=== PATIENT | male | born 1970 | race Caucasian/White ===

== ENCOUNTER → 2018-08-25 11:36 | Outpatient (CLI) | payer OTHER, SELFPAY ==
[2018-08-25 12:12] LABS: Basophils # 0.1 K/mm3 (0-0.2); Basophils % 0.9 % (0.1-2.0); Eosinophils # 0.2 K/mm3 (0.0-0.4); Eosinophils % 2.4 % (0.1-12.0); Hematocrit 47.2 % (42.0-52.0); Hemoglobin 15.3 g/dL (14.1-18.0); Lymphocytes # 2.3 K/mm3 (0.7-4.5); Lymphocytes % 24.2 % (10-50); Mean Corpuscular HGB Conc 32.3 g/dL (31.8-35.4); Mean Corpuscular Hemoglobin 29.9 pg (27.0-31.2); Mean Corpuscular Volume 92.6 fl (80-94); Mean Platelet Volume 6.9 fl (7.4-10.4); Monocytes # 0.6 K/mm3 (0.1-1.0); Neutrophils # 6.3 K/mm3 (1.8-7.8); Neutrophils % 66.6 % (37.0-80.0); Platelet Count 404 K/mm3 (142-424); Red Cell Distribution Width 13.3 % (11.5-17.5); White Blood Count 9.5 K/mm3 (4.8-10.8)
[2018-08-25 12:32] LABS: Hemoglobin A1C 5.6 % (0.0-7.0)
[2018-08-25 14:20] LABS: Alanine Aminotransferase 19 U/L (12-78); Albumin Level 3.9 gm/dL (3.4-5.0); Albumin/Globulin Ratio 1.1 (1.1-1.8); Alkaline Phosphatase 108 U/L (46-116); Anion Gap 15.4 mEq/L (5-15); Aspartate Amino Transferase 10 U/L (15-37); Bilirubin,Total 0.1 mg/dL (0.2-1.0); Blood Urea Nitrogen 15 mg/dL (7-18); Calcium 9.3 mg/dL (8.5-10.1); Carbon Dioxide 27 mmol/L (21.0-32.0); Chloride 103 mmol/L (98-107); Chol/HDL Ratio 5.5 (1-3.5); Cholesterol 194 mg/dL (140-200); Estimated Glomerular Filt Rate 103 ml/min (>60); GFR (African American) 124 ML/MIN (>60); Globulin 3.5 gm/dl (1.3-3.2); Glucose 95 mg/dL (74-106); HDL Cholesterol 35 mg/dL (27-67); LDL Cholesterol 127 mg/dL (0-130); Potassium 4.4 mmoL/L (3.5-5.1); Sodium 141 mmol/L (136-145); T4 (Thyroxine) 6.8 ug/dl (4.7-13.3); Thyroid Stimulating Hormone 2.58 uIU/ml (0.358-3.740); Total Protein,Serum 7.4 gm/dL (6.4-8.2); Triglycerides 158 mg/dL (30-200); VLDL Cholesterol 32 mg/dL (0-40)
[2018-08-26 06:55] LABS: Vitamin B12 445 pg/mL (232-1245)
[2018-08-26 15:09] LABS: Vitamin D 25 Hydroxy 15.1 ng/mL (30.0-100.0)
== END ==
PROVIDERS: PCP Nurse Practitioner Family; Visit Provider Psychiatry & Neurology Psychiatry
DX: F31.12 Bipolar disorder, current episode manic without psychotic features, moderate (principal); F41.9 Anxiety disorder, unspecified; R53.83 Other fatigue
CPT/HCPCS: 36415; 80053; 80061; 82607; 82652; 83036; 84436; 84443; 85025

== ENCOUNTER → 2018-09-28 07:50 | Outpatient (CLI) | payer OTHER, SELFPAY ==
--- NOTE | 2018-09-28 07:53 | MR_ITS ---
MR head/brain wo con HISTORY: Memory loss dizziness and daily headache with blurred vision and weakness in the right side of the body, remote injury ITS.REASON: headache/memory loss ORDERING PHYSICIAN: Jay Lau PATIENT AGE: 48 years Comparison: None TECHNIQUE: Standard multiplanar multiecho sequences are performed without contrast. FINDINGS: No midline shift, mass effect, intracranial hemorrhage, or hydrocephalus is evident. Cerebellopontine angles, cerebellum, and brainstem are unremarkable. There are a few nonspecific T2 white matter hyperintensities in the deep white matter the right frontal parietal junction, right anterior temporal lobe, and left frontal lobe. These are nonspecific. The hippocampal gyri and temporal horns are unremarkable. The pituitary has an unremarkable appearance. The head has a somewhat brachycephalic shape. No large aneurysms are evident. There is opacification of the right aspect of the sphenoid sinus and mild mucosal thickening in the right maxillary sinus. A retention cyst is present in the floor the left maxillary sinus 2 cm No mastoid effusion. IMPRESSION: 1. No acute intracranial findings. 2. Nonspecific scattered T2 white matter hyperintensities 3. Right sphenoid and bilateral maxillary sinus disease
== END ==
PROVIDERS: PCP Emergency Medicine; Visit Provider Nurse Practitioner Family
DX: G44.329 Chronic post-traumatic headache, not intractable (principal); R41.3 Other amnesia
CPT/HCPCS: 70551

== ENCOUNTER → 2019-01-03 09:36 | Outpatient (CLI) | payer OTHER, SELFPAY ==
[2019-01-04 12:13] LABS: Anti-Centromere B Antibodies <0.2 AI (0.0-0.9); Anti-Jo-1 <0.2 AI (0.0-0.9); Anti-Smith Antibody <0.2 AI (0.0-0.9); Antichromatin Antibodies <0.2 AI (0.0-0.9); Antiscleroderma-70 Antibodies <0.2 AI (0.0-0.9); RNP Antibodies <0.2 AI (0.0-0.9); Sjogren's Anti-SS-A <0.2 AI (0.0-0.9); Sjogren's Anti-SS-B <0.2 AI (0.0-0.9)
[2019-01-04 12:46] LABS: Anti-DNA (DS) Ab Qn 12 IU/mL (0-9); Rapid Plasma Reagin Ab Titer Non Reactive (NonRea<1:1)
== END ==
PROVIDERS: PCP Emergency Medicine; Visit Provider Specialist
DX: G93.40 Encephalopathy, unspecified (principal); R41.3 Other amnesia
CPT/HCPCS: 36415; 84443; 86225; 86235; 86592; 95819

== ENCOUNTER → 2019-07-14 10:44 | Outpatient (CLI) | payer OTHER, SELFPAY ==
[2019-07-14 11:21] LABS: Basophils # 0.1 K/mm3 (0-0.2); Eosinophils # 0.2 K/mm3 (0.0-0.4); Eosinophils % 2.7 % (0.1-12.0); Hematocrit 45.6 % (42.0-52.0); Hemoglobin 14.5 g/dL (14.1-18.0); Lymphocytes # 2.3 K/mm3 (0.7-4.5); Lymphocytes % 32.4 % (10-50); Mean Corpuscular HGB Conc 31.8 g/dL (31.8-35.4); Mean Corpuscular Hemoglobin 30.4 pg (27.0-31.2); Mean Corpuscular Volume 95.5 fl (80-94); Mean Platelet Volume 7.5 fl (7.4-10.4); Monocytes # 0.6 K/mm3 (0.1-1.0); Monocytes % 8.5 % (1.7-9.3); Neutrophils % 55.4 % (37.0-80.0); Platelet Count 311 K/mm3 (142-424); Red Blood Count 4.77 M/mm3 (4.60-6.20); Red Cell Distribution Width 13.5 % (11.5-17.5); White Blood Count 7.2 K/mm3 (4.8-10.8)
[2019-07-14 11:54] LABS: Hemoglobin A1C 5.8 % (0.0-7.0)
[2019-07-14 13:53] LABS: Alanine Aminotransferase 50 U/L (12-78); Albumin Level 3.9 gm/dL (3.4-5.0); Albumin/Globulin Ratio 1.3 (1.1-1.8); Alkaline Phosphatase 99 U/L (46-116); Anion Gap 11.2 mEq/L (5-15); Aspartate Amino Transferase 24 U/L (15-37); Bilirubin,Total 0.2 mg/dL (0.2-1.0); Blood Urea Nitrogen 16 mg/dL (7-18); Calcium 9.2 mg/dL (8.5-10.1); Carbon Dioxide 27 mmol/L (21.0-32.0); Chloride 110 mmol/L (98-107); Chol/HDL Ratio 7.4 (1-3.5); Cholesterol 162 mg/dL (140-200); Creatinine,Serum 0.92 mg/dL (0.70-1.30); Estimated Glomerular Filt Rate 87 ml/min (>60); GFR (African American) 105 ML/MIN (>60); Globulin 3.1 gm/dl (1.3-3.2); Glucose 101 mg/dL (74-106); HDL Cholesterol 22 mg/dL (27-67); LDL Cholesterol 91 mg/dL (0-130); Potassium 4.2 mmoL/L (3.5-5.1); Sodium 144 mmol/L (136-145); Thyroid Stimulating Hormone 3.42 uIU/ml (0.358-3.740); Triglycerides 243 mg/dL (30-200); VLDL Cholesterol 49 mg/dL (0-40)
== END ==
PROVIDERS: Visit Provider Psychiatry & Neurology Psychiatry
DX: F31.12 Bipolar disorder, current episode manic without psychotic features, moderate (principal)
CPT/HCPCS: 36415; 80053; 80061; 83036; 84443; 85025

== ENCOUNTER 2020-07-09 13:58 | Emergency (ER) | payer OTHER, SELFPAY ==
[2020-07-09 13:59] VITALS: BP 137/88; PULSE 102; RESP 18; TEMP 36.9; O2SAT 96; BMI 27.4
--- NOTE | 2020-07-09 14:23 | XR_ITS ---
PROCEDURE: XR CHEST 2V CLINICAL HISTORY: cough congestion COMPARISON: No exams were available for comparison FINDINGS: The cardiomediastinal silhouette and pulmonary vascularity are within normal limits. No lobar consolidation or collapse. There is a faint nodular opacity overlying the left lower lobe at the 6th rib anteriorly and could be due to nipple shadow. Follow-up with nipple marker may confirm No acute bony abnormalities. IMPRESSION: No acute finding. Please see above possible nipple shadow on the left. Dictated by: Anton Martines MD 07/09/2020 15:04 Anton Martines MD in [place] 07/09/2020 15:04
--- NOTE | 2020-07-09 14:55 | HMH.EDUTC ---
[facility] [place] Clinical Impression: Abnormal chest x-ray, Bronchitis, Tobacco dependence Sinusitis Qualifiers: Sinusitis location: unspecified location Chronicity: acute Recurrence: non-recurrent Qualified Code(s): J01.90 - Acute sinusitis, unspecified Disposition: Home, Self-Care Condition on Discharge: Good Instructions: Sinusitis, DI for Sinusitis, How to Quit Tobacco Products Additional Instructions: Drink plenty of fluids. Take tylenol for pain or fever. Take the medications as directed. FOLLOW THE DIRECTIONS ON THE COVID-19 HAND OUT THAT WE GAVE YOU REGARDING SELF-ISOLATION UNTIL YOU KNOW YOUR COVID-19 RESULTS Follow up with your primary care doctor regarding your symptoms and you chest x-ray. You need to quit smoking. Rest and self quarantine until you know the results of the COVID-19 test. GO TO THE ER FOR ANY WORSENING SYMPTOMS OR CONCERNS Prescriptions: Promethazine/Dextromethorphan [Promethazine-Dm Syrup] 5 ml PO Q6HP PRN #180 syrup PRN Reason: Cough Transmission Status: Received by [facility] #[id number] Azithromycin [Z-Patrick 250mg Tab*] 250 mg PO UD DOSE PK #6 tab Transmission Status: Received by [facility] # Referrals: Wilmer Gomez MD [Primary Care Provider] - Forms: Work/School Release Time of Disposition: 15:27 Medical Decision Making - Medical Records Medical records reviewed: No: I reviewed the patient's medical records. - Darrel Inquiry Pt receiving controlled substance: No Vital Signs: 07/09/20 13:59 07/09/20 15:52 Temperature 98.5 F 98.5 F Temperature Source Oral Pulse Rate 102 H Pulse Rate [Left Radial] 102 H Respiratory Rate 18 18 Blood Pressure 137/88 Blood Pressure [Right Arm] 137/88 Blood Pressure Mean [Right Arm] 104 Blood Pressure Source [Right Arm] Automatic Cuff Blood Pressure Position [Right Arm] Sitting 02 Sat by Pulse Oximetry 96 Oxygen Delivery Method Room Air Room Air Orders (Tests/Meds): ORDERS Category Date Time Status Covid-19 Nasal PCR ([facility]) Routine Lab 07/09/20 15:05 Received - Radiology Data #1 Image(s): Chest Image Reviewed: Yes I reviewed the patient's radiology image, Yes I have reviewed radiologist's interpretation Preliminary Findings: No Infiltrates Seen PROCEDURE: XR CHEST 2V CLINICAL HISTORY: cough congestion COMPARISON: No exams were available for comparison FINDINGS: The cardiomediastinal silhouette and pulmonary vascularity are within normal limits. No lobar consolidation or collapse. There is a faint nodular opacity overlying the left lower lobe at the 6th rib anteriorly and could be due to nipple shadow. Follow-up with nipple marker may confirm No acute bony abnormalities. IMPRESSION: No acute finding. Please see above possible nipple shadow on the left. Dictated by: Anton Martines MD 07/09/2020 15:04 Anton Martines MD in [place] 07/09/2020 15:04 [facility] [place] - General Stated complaint: congeston,runny nose,headache Time Seen by Provider: 07/09/20 14:55 Mode of Arrival: Ambulatory Source of Information: Patient Limitations: No Limitations Description of Symptoms (Recalled from Triage Doc. by RN): c/o headache, nasal congestion with drainage into throat and chest congestion HEENT Symptoms (Recalled from RN notes): Yes Resp Symptoms (Recalled from RN notes): No Skin Symptoms (Recalled from RN notes): No MS Symptoms (Recalled from RN notes): No Functional Status (Recalled from RN notes): wnl - History of Present Illness Provider Complaint: He c/o 3 days of a worsening productive cough. He denies feeling bad or running a fever. He has a history of smoking cigarettes for the past 30 years. - Related Data Home Medications Medication Instructions Recorded Confirmed fluoxetine 20 mg capsule 20 mg PO DAILY #30 cap 02/06/19 02/06/19 paliperidone palm (3-month) 546 IM #2 ml 02/06/19 02/06/19 mg/1.75 mL intramuscular syringe Previous Rx
[2020-07-09 15:52] VITALS: BP 137/88; PULSE 102; RESP 18; TEMP 36.9; O2SAT 96
--- NOTE | 2020-07-10 14:52 | PC.NURSE ---
1423- Attempted to call patient related to COVID results. Daughter answered phone stating that was not the patient's phone anymore. Daughter gave this nurse the patient's number. Attempted to call that number with no answer. Message left to return call. ([phone])
--- NOTE | 2020-07-10 17:18 | PC.NURSE ---
1717- attempted to get ahold of patient again. answered the phone stating the patient was not home at the time. Requested to have patient call this nurse when he gets home. Patient was educated to stay in quarantine until test results came back.
== END 2020-07-09 15:53 | disposition home or self-care (01) ==
PROVIDERS: Emergency Provider Nurse Practitioner Family; PCP Emergency Medicine
DX: U07.1 COVID-19 (principal); F17.210 Nicotine dependence, cigarettes, uncomplicated; J01.90 Acute sinusitis, unspecified
CPT/HCPCS: 71046; 99202; U0003

== ENCOUNTER 2021-03-10 14:13 | Emergency (ER) | payer OTHER, SELFPAY ==
[2021-03-10 14:40] VITALS: BP 136/84; PULSE 86; RESP 18; TEMP 36.9; O2SAT 98; BMI 29.8
--- NOTE | 2021-03-10 15:05 | HMH.EDUTC ---
[facility] [place]: [place] Disposition: Home, Self-Care Condition on Discharge: Good Instructions: Tooth Abscess, Clindamycin Additional Instructions: *Start antibiotic(s) immediately and be sure to take as ordered for the FULL length of time although you may be feeling better or start to see improvement in the next 24-48 hours *Monitor closely. Outlined redness so that you can monitor easier. Follow up immediately for new or worsening symptoms including but not limited to redness, swelling, streaking from site fever or chills. *Warm compress 15 minutes 3-4 times day *Monitor Temp. Tylenol every 4 hours as needed and ibuprofen every 6 hours as needed (as long as your primary care doctor has told you that it is ok to take both. For fever, aches, pain. ER if no less that 101 despite Tylenol and ibuprofen Follow up with your family doctor/primary care physician in the next 48-72 hours if no improvement Call Dentist and may appointment may take you awhile to get in Follow up with Family Doctor if any worsening of swelling or movement on up face Straight to ER if any life threatening symptoms Over the counter Motrin may help with pain and help with the inflammation if your doctor has said you can take it Take medication with food and make sure to eat some yogurt or take Probiotic to help with GI issues that can come from this medication Use dental balls as prescribed Prescriptions: clindamycin HCL [Cleocin HCl] 300 mg PO TID 10 Days #30 cap Transmission Status: Pending to [facility] #[id number] Referrals: Wilmer Gomez MD [Primary Care Provider] - As needed Gamaliel Vaughn [Referring] - Time of Disposition: 15:08 Medical Decision Making - Darrel Inquiry Pt receiving controlled substance: No Darrel was queried for this patient: No Vital Signs: 03/10/21 14:40 Temperature 98.4 F Temperature Source Oral Pulse Rate [Right Brachial] 86 Respiratory Rate 18 Blood Pressure [Right Arm] 136/84 Blood Pressure Mean [Right Arm] 101 Blood Pressure Source [Right Arm] Automatic Cuff Blood Pressure Position [Right Arm] Sitting 02 Sat by Pulse Oximetry 98 Oxygen Delivery Method Room Air [facility] [place] - General Stated complaint: lt side of face swollen Time Seen by Provider: 03/10/21 15:05 Mode of Arrival: Ambulatory Source of Information: Patient Limitations: No Limitations Description of Symptoms (Recalled from Triage Doc. by RN): PATIENT C/O SWELLING TO LEFT SIDE OF FACE HEENT Symptoms (Recalled from RN notes): Yes Resp Symptoms (Recalled from RN notes): No Skin Symptoms (Recalled from RN notes): No MS Symptoms (Recalled from RN notes): No Functional Status (Recalled from RN notes): WNL - History of Present Illness Provider Complaint: Patient states that he has several broken and decaying teeth State that he went out to eat last night and after started having some swelling and tenderness in his left side of face States that today swelling was worse and hurts when he touches it State that he called trying to get into dentist but no one had any openings - Related Data Home Medications Medication Instructions Recorded Confirmed fluoxetine 20 mg capsule 20 mg PO DAILY #30 cap 02/06/19 02/06/19 paliperidone palm (3-month) 546 IM #2 ml 02/06/19 02/06/19 mg/1.75 mL intramuscular syringe Previous Rx's Medication Instructions Recorded Promethazine/Dextromethorphan 5 ml PO Q6HP PRN #180 syrup 07/09/20 [Promethazine-Dm Syrup] clindamycin HCL [Cleocin HCl] 300 mg PO TID 10 Days #30 cap 03/10/21 Allergies Allergy/AdvReac Type Severity Reaction Status Date / Time levofloxacin [From LEVAQUIN] Allergy Unknown Verified 02/06/19 15:57 - Worker's Comp Is this a Worker's Comp case?: No H History - Hepatitis A Screen Drug use history?: No High risk sexual behaviors?: No History of sexually transmitted infection?: No Currently employed?: No Childcare worker?: No Do you have indoor plum
[2021-03-10 15:18] VITALS: BP 136/84; PULSE 86; RESP 18; TEMP 36.9; O2SAT 98
== END 2021-03-10 15:23 | disposition home or self-care (01) ==
PROVIDERS: Emergency Provider Nurse Practitioner; PCP Emergency Medicine
DX: K04.7 Periapical abscess without sinus (principal); F41.8 Other specified anxiety disorders; G43.709 Chronic migraine without aura, not intractable, without status migrainosus; F17.210 Nicotine dependence, cigarettes, uncomplicated
CPT/HCPCS: 99202; G0463

== ENCOUNTER 2021-08-08 16:14 | Emergency (ER) | payer OTHER, SELFPAY ==
[2021-08-08 16:40] LABS: UTC Strep Screen (Rapid) Negative (Negative)
--- NOTE | 2021-08-08 17:08 | HMH.EDUTC ---
[facility] [place] Clinical Impression: Strep throat Disposition: Home, Self-Care Condition on Discharge: Good Instructions: Strep Throat, DI for Strep Throat Additional Instructions: Drink plenty of fluids. Take tylenol or ibuprofen for pain or fever. Take the medications as directed. Follow up with your regular doctor. GO TO THE ER FOR ANY WORSENING SYMPTOMS Throw your tooth brush away and get a new one. Prescriptions: Amoxicillin/Potassium Clav [Augmentin 875-125 Tablet] 1 tab PO Q12H 10 Days #20 tab Transmission Status: Received by [facility] # predniSONE [Deltasone 10mg tablet] 10 mg PO BID 3 Days #6 tab Transmission Status: Received by [facility] # Referrals: Wilmer Gomez MD [Primary Care Provider] - Time of Disposition: 17:33 Medical Decision Making - Medical Records Medical records reviewed: No: I reviewed the patient's medical records. - Darrel Inquiry Pt receiving controlled substance: No Vital Signs: 08/08/21 17:28 08/08/21 17:44 Temperature 98.4 F 98.4 F Temperature Source Oral Oral Pulse Rate 69 Pulse Rate [Left Radial] 69 Respiratory Rate 18 18 Blood Pressure 174/98 H Blood Pressure [Right Arm] 174/98 H Blood Pressure Mean [Right Arm] 123 02 Sat by Pulse Oximetry 99 Oxygen Delivery Method Room Air Room Air - Lab Data Lab results reviewed: Yes: I reviewed the patient's lab results. Lab Results 08/08/21 16:32: Strep Scn Rapid Clinic Negative Orders (Tests/Meds): ORDERS Category Date Time Status Strep Screen Confirmation Routine Micro 08/08/21 16:32 Received [facility] [place] HPI - General Stated complaint: sore throat,Cough,runny nose Time Seen by Provider: 08/08/21 17:30 - History of Present Illness Provider Complaint: He c/o sore throat and feeling bad for the past 2 days. He has been with his grandson that tested positive for strep throat yesterday with similar symptoms to his. He denies fever, but he has had some chilling. He denies any vomiting, but he has had nausea and diarrhea. - Related Data Home Medications Medication Instructions Recorded Confirmed fluoxetine 20 mg capsule 20 mg PO DAILY #30 cap 02/06/19 02/06/19 paliperidone palm (3-month) 546 IM #2 ml 02/06/19 02/06/19 mg/1.75 mL intramuscular syringe Previous Rx's Medication Instructions Recorded Promethazine/Dextromethorphan 5 ml PO Q6HP PRN #180 syrup 07/09/20 [Promethazine-Dm Syrup] clindamycin HCL [Cleocin HCl] 300 mg PO TID 10 Days #30 cap 03/10/21 Amoxicillin/Potassium Clav 1 tab PO Q12H 10 Days #20 tab 08/08/21 [Augmentin 875-125 Tablet] predniSONE [Deltasone 10mg tablet] 10 mg PO BID 3 Days #6 tab 08/08/21 Allergies Allergy/AdvReac Type Severity Reaction Status Date / Time levofloxacin [From LEVAQUIN] Allergy Unknown Verified 02/06/19 15:57 [facility] History - Hepatitis A Screen Attestation statement:: This patient has been screened for Hepatitis A risk factors. I have reviewed the patient's past medical history: Yes Medical History: Reports:: Anxiety, Depression, Migraine Comment: Bipolar disorder w/ psycosis Other Surgeries: Yes: No Previous Surgery Amputation: No Fractures: Yes - Social History Smoking Status: Current every day smoker Alcohol Intake: never Alcohol Intake Frequency:: other Substance Use Type: former substance user Occupational Status: other Household Members: family - Psychiatric History Pschychiatric History:: Reports:: Anxiety, Depression Family Hx:: Hypertension, Hyperlipidemia, Heart Attack ROS Obtained: Yes All systems reviewed & no additional complaints - Constitutional Constitutional: Reports as per HPI - Eyes Eyes: Denies blurry vision - ENT Ears, Nose, Mouth, and Throat: Reports as per HPI - Cardiovascular Cardiovascular: Denies chest pain - Respiratory Respiratory: Denies chest congestion, Reports cough, Denies dyspnea, Denies stridor, Denies wheezing -
[2021-08-08 17:28] VITALS: BP 174/98; PULSE 69; RESP 18; TEMP 36.9; O2SAT 99; BMI 29.5
[2021-08-08 17:44] VITALS: BP 174/98; PULSE 69; RESP 18; TEMP 36.9; O2SAT 99
== END 2021-08-08 17:46 | disposition home or self-care (01) ==
PROVIDERS: Emergency Provider Nurse Practitioner Family; PCP Emergency Medicine
DX: J02.0 Streptococcal pharyngitis (principal); F41.8 Other specified anxiety disorders; Z79.899 Other long term (current) drug therapy
CPT/HCPCS: 87880; 99202; G0463

== ENCOUNTER → 2021-12-24 13:49 | Outpatient (CLI) | payer OTHER, SELFPAY ==
[2021-12-24 14:22] LABS: Basophils # 0.1 K/mm3 (0-0.2); Basophils % 1.8 % (0.1-2.0); Eosinophils # 0.2 K/mm3 (0.0-0.4); Eosinophils % 2.6 % (0.1-12.0); Hematocrit 41.6 % (42.0-52.0); Hemoglobin 13.9 g/dL (14.1-18.0); Lymphocytes # 2.5 K/mm3 (0.7-4.5); Lymphocytes % 32.2 % (10-50); Mean Corpuscular HGB Conc 33.5 g/dL (31.8-35.4); Mean Corpuscular Hemoglobin 32.9 pg (27.0-31.2); Mean Corpuscular Volume 98.4 fl (80-94); Mean Platelet Volume 8.3 fl (7.4-10.4); Monocytes # 0.7 K/mm3 (0.1-1.0); Monocytes % 9.3 % (1.7-9.3); Neutrophils # 4.2 K/mm3 (1.8-7.8); Neutrophils % 54.2 % (37.0-80.0); Platelet Count 253 K/mm3 (142-424); Red Blood Count 4.22 M/mm3 (4.60-6.20); Red Cell Distribution Width 14.1 % (11.5-17.5); White Blood Count 7.8 K/mm3 (4.8-10.8)
[2021-12-24 14:43] LABS: Chloride 111 mmol/L (98-107); Potassium 3.6 mmoL/L (3.5-5.1); Sodium 141 mmol/L (136-145)
[2021-12-24 14:45] LABS: Alanine Aminotransferase 60 U/L (12-78); Blood Urea Nitrogen 10 mg/dl (9-20); Estimated Glomerular Filt Rate 89 ml/min (>60); GFR (African American) 107 ML/MIN (>60)
[2021-12-24 14:46] LABS: Albumin Level 4.2 g/dl (3.5-5.0); Albumin/Globulin Ratio 1.7 (1.1-1.8); Alkaline Phosphatase 76 U/L (38-126); Anion Gap 10.6 mEq/L (5-15); Aspartate Amino Transferase 74 U/L (17-59); Bilirubin,Total 0.5 mg/dl (0.2-1.3); Calcium 8.8 mg/dl (8.4-10.2); Carbon Dioxide 23 mmol/L (22.0-30.0); Cholesterol 205 mg/dl (140-200); Globulin 2.5 g/dL (1.3-3.2); Glucose 87 mg/dl (74-100); Total Protein,Serum 6.7 g/dl (6.3-8.2); Triglycerides 309 mg/dl (30-150); VLDL Cholesterol 62 mg/dL (0-40)
[2021-12-24 14:47] LABS: Chol/HDL Ratio 9.8 (1-3.5); HDL Cholesterol 21 mg/dl (40-60)
[2021-12-24 14:59] LABS: Direct LDL Cholesterol 129.93 mg/dL (100-129)
[2021-12-24 15:11] LABS: Hemoglobin A1C 5.7 % (4.0-6.0)
[2021-12-24 15:20] LABS: Thyroid Stimulating Hormone 2.17 uIU/mL (0.465-4.68)
== END ==
PROVIDERS: Visit Provider Psychiatry & Neurology Psychiatry
DX: F25.1 Schizoaffective disorder, depressive type (principal); F31.12 Bipolar disorder, current episode manic without psychotic features, moderate
CPT/HCPCS: 36415; 80053; 80061; 83036; 84443; 85025

== ENCOUNTER 2022-06-07 13:57 | Emergency (ER) | payer OTHER, SELFPAY ==
[2022-06-07 13:57] VITALS: BP 147/89; PULSE 91; RESP 16; TEMP 36.7; O2SAT 98; BMI 29.5; BMI 33.4
[2022-06-07 15:31] VITALS: BP 131/86; PULSE 76; O2SAT 97
--- NOTE | 2022-06-07 15:31 | CT_ITS ---
PROCEDURE INFORMATION: Exam: CT Abdomen And Pelvis Without Contrast Exam date and time: 06/07/2022 3:42 PM Age: 52 years old Clinical indication: Abdominal pain; Flank; Left; Additional info: Left flank pain TECHNIQUE: Imaging protocol: Computed tomography of the abdomen and pelvis without contrast. Radiation optimization: All CT scans at this facility use at least one of these dose optimization techniques: automated exposure control; mA and/or kV adjustment per patient size (includes targeted exams where dose is matched to clinical indication); or iterative reconstruction. COMPARISON: CR XR CHEST 2V 06/07/2022 3:35 PM FINDINGS: Lungs: No acute findings in the visualized lung bases. There is a partially calcified 1 cm granuloma in the left lower lobe, and adjacent minimal reticulonodular scarring. No focal consolidation. Pleural spaces: No pleural effusion or pneumothorax, as visualized. Heart: The heart is not enlarged. Trace pericardial effusion. Liver: Prominent diminished liver attenuation consistent with fatty change, with periportal sparing. Hepatomegaly. No discrete mass is seen on this nonenhanced exam. Gallbladder and bile ducts: The gallbladder is unremarkable. No calcified stones or biliary dilatation. Pancreas: Mild fatty infiltrative changes of the pancreas. No ductal dilatation or acute findings. Spleen: Slight splenomegaly approximate 13 cm series 3, image 23. Adrenal glands: The adrenal glands are normal. Kidneys and ureters: There are tiny bilateral nonobstructing renal calculi, at the right upper pole coronal series 1001, image 54, and left lower pole image 53. No hydronephrosis, hydroureter, or calcified obstructing ureteral stones. Stomach and bowel: The stomach is normal. There is no evidence of intestinal perforation or obstruction. No significantly dilated loops or mucosal thickening. The descending colon is mostly empty and contracted which likely accounts for minimally thickened appearance. There is no pericolic fluid, no extraluminal gas bubbles. Appendix: A normal appendix is identified. Intraperitoneal space: There is no free intraperitoneal air. There is no significant free intraperitoneal fluid. Vasculature: There is no aortic aneurysm. The vasculature demonstrates scattered mild atherosclerotic calcification. Lymph nodes: Mild portacaval adenopathy, with cluster of 2 prominent nodes coronal series 1001, image 39, and axial series 3, images 35-44; the more superior node approximately 2.0 x 1.5 x 1.8 cm, the inferior node 2.4 x 2.4 x 1 cm. Urinary bladder: The urinary bladder appears within normal limits for the degree of distension, poorly filled. No calcified stones. Reproductive: Prostate calcifications. No significant prostate enlargement. Seminal vesicles are unremarkable. Bones/joints: There are spinal degenerative changes, with multilevel disc narrrowing and spondylosis. Mild lower lumbar levoscoliosis, mild facet arthropathy. No acute appearing fractures. Soft tissues: There is a tiny fatty umbilical hernia; no herniated bowel loops. There are no soft tissue masses or fluid collections. IMPRESSION: 1. Tiny bilateral nonobstructing renal calculi. No hydronephrosis, hydroureter, or calcified obstructing ureteral stones. 2. Spinal degenerative changes, no acute fracture. 3. Fatty liver, mild hepatosplenomegaly. 4. Additional nonemergency and chronic findings as above.
--- NOTE | 2022-06-07 15:32 | XR_ITS ---
PROCEDURE INFORMATION: Exam: XR Chest Exam date and time: 06/07/2022 3:35 PM Age: 52 years old Clinical indication: Pain; Left-sided; Additional info: Flank pain TECHNIQUE: Imaging protocol: Radiologic exam of the chest. Views: 2 views. 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 No pulmonary consolidation. Lung volumes within normal limits. Pulmonary vessels do not appear congested. Pleural spaces: Unremarkable. No significant pleural effusion. No pneumothorax. Heart/Mediastinum: The cardiac silhouette is normal. Bones/joints: There are spinal degenerative changes, with multilevel disc narrrowing and spondylosis. IMPRESSION: 1. No acute findings. 2. 1 cm left lower lobe pulmonary granuloma. 3. No pulmonary consolidation, pleural effusion, or pneumothorax.
--- NOTE | 2022-06-07 15:33 | HMH.EDGENADL ---
Discharge Plan Disposition Patient Disposition: Home, Self-Care Condition: Good Prescriptions Prescriptions: New ibuprofen 800 mg tablet 800 mg PO Q8HP PRN (Reason: moderate pain ) Qty: 15 0RF methocarbamol 750 mg tablet 750 mg PO Q8H Qty: 10 0RF No Action prednisone 10 mg tablet 10 mg PO BID Qty: 10 0RF Rx Instructions: step two prednisone 20 mg tablet 20 mg PO BID Qty: 10 0RF Rx Instructions: step one cefdinir 300 mg capsule 300 mg PO BID Qty: 14 0RF Referrals Follow up/Referrals: Wilmer Gomez MD [Primary Care Provider] - See instructions Activity Restrictions/Add. Instructions Additional Instructions/Restrictions: Ibuprofen and Robaxin as prescribed. Heating pad 20 minutes 4 times a day. Follow-up with primary care provider if not improved in 2 to 3 days. Clinical Impressions Clinical Impression: Lumbar strain Instructions Patient Instructions: DI for Low Back Pain Discharge ED Provider: Victor Manuel Dubois General Adult HPI General Chief complaint: PAIN Stated complaint: Cough, pain in LT side from coughing Time Seen by Provider: 06/07/22 15:10 Mode of Arrival: Ambulatory Source of Information: Patient Limitations: No Limitations Description of Symptoms (Recalled from ER Triage Doc. by RN): to ed per pvt car with c/o sharp lt side pain starting yesterday after coughing. pt states pain worse with coughing, movement, inspiration History of Present Illness HPI narrative: States that yesterday he was smoking a cigarette and he felt like the smoke went down the wrong pipe causing him to go into a coughing fit. After coughing he developed severe pain in his left paraspinous lumbar/flank area. The pain is present constantly but worsens with movement and coughing. He has had urinary urgency, but no gross hematuria. He does have a prior history of a kidney stone. He also states that he has had a sensation of abdominal bloating preceding the symptoms by a couple of days and also has belching that tastes foul. Because of these other symptoms his wonders whether he has an ulcer. Related Data Previous Rx's Medication Instructions Recorded cefdinir 300 mg capsule 300 mg PO BID #14 caps 05/04/22 prednisone 10 mg tablet 10 mg PO BID #10 tabs 05/04/22 prednisone 20 mg tablet 20 mg PO BID #10 tabs 08/15/22 ibuprofen 800 mg tablet 800 mg PO Q8HP PRN moderate pain 06/07/22 #15 tabs methocarbamol 750 mg tablet 750 mg PO Q8H #10 tabs 06/07/22 Allergies Allergy/AdvReac Type Severity Reaction Status Date / Time levofloxacin [From LEVAQUIN] Allergy Unknown Verified 05/04/22 15:46 PFSH PFSH Social History Smoking Status: Current every day smoker alcohol intake: never substance use type: former substance user current occupational status: other Travel in the last 8 weeks: Inside the [place] household members: family ROS Obtained: Yes Systems reviewed as appropriate & no additional complaints except as documented Constitutional Constitutional: Denies fever(s), Denies headache(s) and Denies weakness ENT Ears, Nose, Mouth, and Throat: Denies headache(s), Denies nasal discharge and Denies sore throat Cardiovascular Cardiovascular: Denies chest pain Respiratory Respiratory: Reports shortness of breath and Reports pain with cough Gastrointestinal Gastrointestingal: Reports bloating; Denies abdominal pain, constipation, diarrhea or vomiting Genitourinary Male Genitourinary: Denies difficulty urinating, Reports flank pain, Denies hematuria and Reports urinary urgency Musculoskeletal Musculoskeletal: Reports as per HPI, Reports back pain and Denies numbness Neurologic Neurologic: Denies headache(s), Denies numbness and Denies weakness Physical Exam General General appearance: alert and in no apparent distress Head Head exam: atraumatic and normocephalic Eye Eye exam: Present normal appearance and EOMI ENT ENT exam: Present mucous membra
[2022-06-07 15:36] LABS: Microscopic, Urine URINE MICROSCOPIC (MICROSCOPIC)
[2022-06-07 15:46] LABS: Appearance,Urine CLEAR (Clear); Bilirubin,Urine Negative (Negative); Blood, Urine Negative (Negative); Color,Urine YELLOW (Yellow); Glucose,Urine (UA) Negative (Negative); Ketones,Urine Negative (Negative); Leukocyte Esterase,Urine Negative (Negative); Nitrate,Urine Negative (Negative); Protein,Urine Negative (Negative); Specific Gravity, Urine 1.015 (1.005-1.030); Urobilinogen,Urine 0.2 EU/dl (0.2)
[2022-06-07 15:53] LABS: Basophils # 0.1 K/mm3 (0-0.2); Basophils % 1.2 % (0.1-2.0); Eosinophils # 0.3 K/mm3 (0.0-0.4); Hematocrit 43.9 % (42.0-52.0); Hemoglobin 15.2 g/dL (14.1-18.0); Lymphocytes % 27.3 % (10-50); Mean Corpuscular HGB Conc 34.5 g/dL (31.8-35.4); Mean Corpuscular Hemoglobin 33.8 pg (27.0-31.2); Mean Corpuscular Volume 97.8 fl (80-94); Mean Platelet Volume 8.2 fl (7.4-10.4); Monocytes # 0.9 K/mm3 (0.1-1.0); Monocytes % 8.5 % (1.7-9.3); Neutrophils # 6.6 K/mm3 (1.8-7.8); Platelet Count 257 K/mm3 (142-424); Red Blood Count 4.49 M/mm3 (4.60-6.20); Red Cell Distribution Width 14.1 % (11.5-17.5); White Blood Count 10.9 K/mm3 (4.8-10.8)
[2022-06-07 16:20] LABS: Chloride 108 mmol/L (98-107); Sodium 142 mmol/L (136-145)
[2022-06-07 16:22] LABS: Alanine Aminotransferase 60 U/L (12-78); Alkaline Phosphatase 79 U/L (38-126); Aspartate Amino Transferase 65 U/L (17-59); Blood Urea Nitrogen 10 mg/dl (9-20); Carbon Dioxide 22 mmol/L (22.0-30.0); Creatinine Clearance Estimated 151 mL/min (50-200); Estimated Glomerular Filt Rate 101 ml/min (>60); GFR (African American) 122 ML/MIN (>60); Lipase 183 U/L (23-300)
[2022-06-07 16:23] LABS: Albumin Level 4.2 g/dl (3.5-5.0); Albumin/Globulin Ratio 1.4 (1.1-1.8); Bilirubin,Total < 0.1 mg/dl (0.2-1.3); Calcium 9.1 mg/dl (8.4-10.2); Glucose 134 mg/dl (74-100); Total Protein,Serum 7.2 g/dl (6.3-8.2)
[2022-06-07 16:30] VITALS: BP 122/83; PULSE 65; RESP 20; O2SAT 97
[2022-06-07 16:30] LABS: Squamous Epithelial Cell,Urine Occasional #/hpf (0-5); WBC,Urine Occasional #/hpf (0-3)
--- NOTE | 2022-06-07 16:46 | PC.NURSE ---
pt given sprite
[2022-06-07 17:01] VITALS: BP 123/81; PULSE 63; RESP 22; O2SAT 96
--- NOTE | 2022-06-07 17:17 | PC.NURSE ---
family at bedside updated on plan of care
[2022-06-07 17:27] VITALS: BP 130/74; PULSE 78; RESP 16; TEMP 36.6; O2SAT 98
== END 2022-06-07 17:29 | disposition home or self-care (01) ==
PROVIDERS: Emergency Provider Emergency Medicine; PCP Emergency Medicine
DX: S39.012A Strain of muscle, fascia and tendon of lower back, initial encounter (principal); Z79.899 Other long term (current) drug therapy; Z88.1 Allergy status to other antibiotic agents; Z72.0 Tobacco use
CPT/HCPCS: 71046; 74176; 80053; 81001; 83690; 85025; 96365; 96375; 99284

== ENCOUNTER → 2022-06-22 16:00 | Outpatient (CLI) | payer OTHER, SELFPAY ==
[2022-06-22 17:24] LABS: Basophils # 0.1 K/mm3 (0-0.2); Basophils % 1.1 % (0.1-2.0); Eosinophils # 0.3 K/mm3 (0.0-0.4); Eosinophils % 2.6 % (0.1-12.0); Hematocrit 45.9 % (42.0-52.0); Lymphocytes # 2.9 K/mm3 (0.7-4.5); Mean Corpuscular HGB Conc 32.7 g/dL (31.8-35.4); Mean Corpuscular Hemoglobin 32.1 pg (27.0-31.2); Mean Corpuscular Volume 98.2 fl (80-94); Mean Platelet Volume 8.5 fl (7.4-10.4); Monocytes % 8.7 % (1.7-9.3); Neutrophils # 6.9 K/mm3 (1.8-7.8); Neutrophils % 61.6 % (37.0-80.0); Platelet Count 300 K/mm3 (142-424); Red Blood Count 4.67 M/mm3 (4.60-6.20); Red Cell Distribution Width 14.2 % (11.5-17.5); White Blood Count 11.2 K/mm3 (4.8-10.8)
[2022-06-22 18:03] LABS: Chloride 107 mmol/L (98-107); Potassium 3.9 mmoL/L (3.5-5.1); Sodium 144 mmol/L (136-145)
[2022-06-22 18:04] LABS: Alanine Aminotransferase 73 U/L (12-78); Alkaline Phosphatase 87 U/L (38-126); Anion Gap 16.9 mEq/L (5-15); Aspartate Amino Transferase 80 U/L (17-59); Bilirubin,Total 0.2 mg/dl (0.2-1.3); Blood Urea Nitrogen 14 mg/dl (9-20); Carbon Dioxide 24 mmol/L (22.0-30.0); Estimated Glomerular Filt Rate 101 ml/min (>60); GFR (African American) 122 ML/MIN (>60)
[2022-06-22 18:05] LABS: Albumin Level 4.7 g/dl (3.5-5.0); Albumin/Globulin Ratio 1.6 (1.1-1.8); Calcium 9.5 mg/dl (8.4-10.2); Chol/HDL Ratio 10.2 (1-3.5); Cholesterol 224 mg/dl (140-200); Globulin 2.9 g/dL (1.3-3.2); Glucose 117 mg/dl (74-100); HDL Cholesterol 22 mg/dl (40-60); Total Protein,Serum 7.6 g/dl (6.3-8.2); Triglycerides 349 mg/dl (30-150); VLDL Cholesterol 70 mg/dL (0-40)
[2022-06-22 18:21] LABS: Free T4 (Free Thyroxine) 0.88 ng/dl (0.78-2.19)
[2022-06-22 18:27] LABS: 25-OH Vitamin D, Total 75.2 ng/mL (30-100)
[2022-06-22 18:35] LABS: Thyroid Stimulating Hormone 4.03 uIU/mL (0.465-4.68)
== END ==
PROVIDERS: PCP Emergency Medicine; Visit Provider Emergency Medicine
DX: K46.9 Unspecified abdominal hernia without obstruction or gangrene (principal); E55.9 Vitamin D deficiency, unspecified
CPT/HCPCS: 80053; 80061; 82306; 84439; 84443; 85025

== ENCOUNTER → 2022-07-08 10:06 | Outpatient (CLI) | payer OTHER, SELFPAY ==
--- NOTE | 2022-07-08 10:06 | CT_ITS ---
FINAL REPORT TECHNIQUE: Axial images through the abdomen and pelvis were performed without contrast.This study was performed with techniques to keep radiation doses as low as reasonably achievable, (ALARA). Individualized dose reduction techniques using automated exposure control or adjustment of mA and/or kV according to the patient's size were employed. CLINICAL HISTORY: periumbilical hernia, prior scan 05/2022 COMPARISON: 06/07/2020 a FINDINGS: ABDOMEN: The lung bases are clear. The heart size is normal. Limited images of the liver demonstrate fatty infiltration. Gallbladder is unremarkable. The spleen is at the upper limits of normal measuring 12 cm. No adrenal mass is identified. The aorta is normal in caliber. There is no significant free fluid or adenopathy. There is a less than 3 mm, nonobstructing left renal stone. There is no hydronephrosis. There is a small umbilical hernia containing fat. PELVIS: The appendix is normal. There are multiple, fluid-filled bowel loops in a nonspecific pattern. Small inguinal hernias are seen containing fat. The urinary bladder is unremarkable. There is no significant free fluid or adenopathy. IMPRESSION: Fatty infiltration of the liver. Spleen at upper limits of normal in size measuring 12 cm. Nonobstructing left renal stone. Small umbilical hernia containing fat. Reviewed, Interpreted and Dictated by Lc Cabrera III, MD Transcribed by Michelle Ang Authenticated and [facility]
== END ==
PROVIDERS: PCP Emergency Medicine; Visit Provider Emergency Medicine
DX: K42.9 Umbilical hernia without obstruction or gangrene (principal)
CPT/HCPCS: 74176

== ENCOUNTER → 2022-07-17 07:54 | Outpatient (CLI) | payer OTHER, SELFPAY ==
--- NOTE | 2022-07-17 07:54 | US_ITS ---
FINAL REPORT CLINICAL HISTORY: pain FINDINGS: Sonographic images of the abdomen were obtained. The liver has increased echogenicity consistent with fatty infiltration. Note is made of probable polyps within the gallbladder without a well-defined stone. There is no evidence of biliary ductal dilatation. The common hepatic duct measures 2 mm, which is within normal limits. Limited images of the pancreas are unremarkable. The spleen size is normal. The right kidney measures 11.8 cm in length. The left kidney measures 10.6 cm in length. There is normal renal echogenicity. There is no evidence of hydronephrosis. The aorta has an unremarkable appearance. Limited images of the inferior vena cava are unremarkable. There is a possible small umbilical hernia. IMPRESSION: Possible small umbilical hernia. If indicated, CT could further evaluate. Fatty liver. Probable polyps within the gallbladder without a well-defined stone. Reviewed, Interpreted and Dictated by Lc Cabrera III, MD Transcribed by Marilyn Ndiaye Authenticated and [facility]
== END ==
PROVIDERS: PCP Emergency Medicine; Visit Provider Surgery
DX: R10.9 Unspecified abdominal pain (principal)
CPT/HCPCS: 76700

== ENCOUNTER → 2022-07-28 12:04 | Outpatient (CLI) | payer OTHER, SELFPAY ==
[2022-07-28 12:49] LABS: Basophils # 0.1 K/mm3 (0-0.2); Basophils % 0.9 % (0.1-2.0); Eosinophils # 0.2 K/mm3 (0.0-0.4); Eosinophils % 2.6 % (0.1-12.0); Hematocrit 44.1 % (42.0-52.0); Hemoglobin 14.5 g/dL (14.1-18.0); Lymphocytes # 2.6 K/mm3 (0.7-4.5); Lymphocytes % 28.6 % (10-50); Mean Corpuscular HGB Conc 32.8 g/dL (31.8-35.4); Mean Corpuscular Hemoglobin 32.2 pg (27.0-31.2); Mean Corpuscular Volume 98.4 fl (80-94); Mean Platelet Volume 8.8 fl (7.4-10.4); Monocytes # 0.7 K/mm3 (0.1-1.0); Monocytes % 7.8 % (1.7-9.3); Neutrophils # 5.6 K/mm3 (1.8-7.8); Neutrophils % 60.2 % (37.0-80.0); Platelet Count 262 K/mm3 (142-424); Red Blood Count 4.48 M/mm3 (4.60-6.20); White Blood Count 9.2 K/mm3 (4.8-10.8)
[2022-07-28 13:06] LABS: INR 1.01 (0.9-1.1); Prothrombin Time 10.9 seconds (10.1-12.5)
[2022-07-28 14:09] LABS: Chloride 105 mmol/L (98-107); Potassium 4.2 mmoL/L (3.5-5.1); Sodium 142 mmol/L (136-145)
[2022-07-28 14:12] LABS: Alanine Aminotransferase 64 U/L (12-78); Albumin Level 4.6 g/dl (3.5-5.0); Albumin/Globulin Ratio 1.7 (1.1-1.8); Alkaline Phosphatase 74 U/L (38-126); Anion Gap 15.2 mEq/L (5-15); Aspartate Amino Transferase 70 U/L (17-59); Bilirubin,Total 0.2 mg/dl (0.2-1.3); Blood Urea Nitrogen 11 mg/dl (9-20); Calcium 10.4 mg/dl (8.4-10.2); Carbon Dioxide 26 mmol/L (22.0-30.0); Estimated Glomerular Filt Rate 101 ml/min (>60); GFR (African American) 122 ML/MIN (>60); Globulin 2.7 g/dL (1.3-3.2); Glucose 91 mg/dl (74-100); Total Protein,Serum 7.3 g/dl (6.3-8.2)
== END ==
PROVIDERS: PCP Emergency Medicine; Visit Provider Surgery
DX: K42.9 Umbilical hernia without obstruction or gangrene (principal); K82.4 Cholesterolosis of gallbladder; Z79.84 Long term (current) use of oral hypoglycemic drugs
CPT/HCPCS: 36415; 80053; 85025; 85610

== ENCOUNTER 2022-08-12 22:24 | Emergency (ER) | payer OTHER, SELFPAY ==
[2022-08-12 22:25] VITALS: BP 130/89; PULSE 87; RESP 20; TEMP 36.7; O2SAT 98; BMI 29.5
[2022-08-12 23:02] LABS: Basophils # 0.1 K/mm3 (0-0.2); Basophils % 1.1 % (0.1-2.0); Eosinophils # 0.2 K/mm3 (0.0-0.4); Eosinophils % 1.8 % (0.1-12.0); Hematocrit 47.1 % (42.0-52.0); Hemoglobin 15.5 g/dL (14.1-18.0); Lymphocytes # 2.2 K/mm3 (0.7-4.5); Lymphocytes % 23.4 % (10-50); Mean Corpuscular Hemoglobin 32.3 pg (27.0-31.2); Mean Platelet Volume 8.1 fl (7.4-10.4); Microscopic, Urine URINE MICROSCOPIC (MICROSCOPIC); Monocytes # 0.7 K/mm3 (0.1-1.0); Monocytes % 7.1 % (1.7-9.3); Neutrophils # 6.3 K/mm3 (1.8-7.8); Neutrophils % 66.6 % (37.0-80.0); Platelet Count 275 K/mm3 (142-424); Red Blood Count 4.81 M/mm3 (4.60-6.20); Red Cell Distribution Width 14.1 % (11.5-17.5); White Blood Count 9.4 K/mm3 (4.8-10.8)
[2022-08-12 23:03] LABS: Appearance,Urine CLEAR (Clear); Bilirubin,Urine Negative (Negative); Blood, Urine Negative (Negative); Color,Urine YELLOW (Yellow); Glucose,Urine (UA) Negative (Negative); Ketones,Urine Negative (Negative); Leukocyte Esterase,Urine Negative (Negative); Nitrate,Urine Negative (Negative); PH,Urine 5.5 (5.0-8.5); Protein,Urine Negative (Negative); Specific Gravity, Urine >= 1.030 (1.005-1.030); Urobilinogen,Urine 0.2 EU/dl (0.2)
[2022-08-12 23:05] LABS: Chloride 108 mmol/L (98-107); Potassium 3.4 mmoL/L (3.5-5.1); Sodium 143 mmol/L (136-145)
[2022-08-12 23:07] LABS: Amylase 95 U/L (30-110); Blood Urea Nitrogen 14 mg/dl (9-20); Creatinine Clearance Estimated 110 mL/min (50-200); Estimated Glomerular Filt Rate 78 ml/min (>60); GFR (African American) 95 ML/MIN (>60)
[2022-08-12 23:08] LABS: Alanine Aminotransferase 64 U/L (12-78); Albumin Level 4.8 g/dl (3.5-5.0); Albumin/Globulin Ratio 1.5 (1.1-1.8); Alkaline Phosphatase 65 U/L (38-126); Anion Gap 12.4 mEq/L (5-15); Aspartate Amino Transferase 71 U/L (17-59); Bilirubin,Total 0.3 mg/dl (0.2-1.3); Calcium 10.4 mg/dl (8.4-10.2); Carbon Dioxide 26 mmol/L (22.0-30.0); Globulin 3.1 g/dL (1.3-3.2); Glucose 101 mg/dl (74-100); Lipase 157 U/L (23-300); Total Protein,Serum 7.9 g/dl (6.3-8.2)
[2022-08-12 23:18] LABS: Squamous Epithelial Cell,Urine Occasional #/hpf (0-5)
--- NOTE | 2022-08-12 23:56 | HMH.EDABDPAI ---
Discharge Plan Disposition Patient Disposition: Home, Self-Care Chief Complaint: Abdominal Pain Prescriptions Prescriptions: No Action hydrocodone-acetaminophen 5-325 mg tablet 1 tab PO BID PRN (Reason: pain) Qty: 30 0RF sertraline 25 mg tablet 25 mg PO DAILY topiramate 100 mg tablet 100 mg PO DAILY paliperidone palm (3-month) 273 mg/0.88 mL syringe 273 mg IM [id number] atorvastatin 20 mg tablet 20 mg PO DAILY Qty: 90 0RF pantoprazole 40 mg tablet,delayed release (DR/EC) See Rx Instructions .ROUTE .COMPLEX Rx Instructions: TAKE 1 TABLET BY MOUTH DAILY Referrals Follow up/Referrals: Wilmer Gomez MD [Primary Care Provider] - See instructions Lc Askew MD [Staff Physician] - See instructions Clinical Impressions Clinical Impression: Abdominal pain Instructions Patient Instructions: DI for Acute Abdominal Pain Discharge ED Provider: Wilmer Gomez Abdominal Pain HPI General Chief Complaint: Abdominal Pain Stated Complaint: abd pain Time Seen by Provider: 08/12/22 23:56 Mode of Arrival: Family Vehicle Source of Information: Patient Limitations: No Limitations Description of Symptoms (Recalled from ER Triage Doc. by RN): Pt c/o severe RUQ ADB pain that feels tight around to my side . States he has a knwon bad gallbladder and hernia that Dr. Askew is going to repair/remove on 08/17. Pt does report nausea. Denies fever, chills, or diarrhea. History of Present Illness HPI narrative: pt with acute abd pain with hx of gb dis and pending surg complaint: abdominal pain Onset (ago): hour(s) Consistency: intermittent Severity: moderate Radiation: RUQ Related Data Home Medications Medication Instructions Recorded Confirmed paliperidone palm (3-month) 273 273 mg IM [id number] hallucinations 06/22/22 08/11/22 mg/0.88 mL intramuscular syringe sertraline 25 mg tablet 25 mg PO DAILY Depression 06/22/22 08/11/22 topiramate 100 mg tablet 100 mg PO DAILY migraines 06/22/22 08/11/22 pantoprazole 40 mg tablet,delayed See Rx Instructions .Route 08/11/22 08/11/22 release .COMPLEX GERD Previous Rx's Medication Instructions Recorded hydrocodone 5 mg-acetaminophen 325 1 tab PO BID PRN pain #30 tabs 07/20/22 mg tablet atorvastatin 20 mg tablet 20 mg PO DAILY elevated 08/04/22 cholesterol #90 tabs Allergies Allergy/AdvReac Type Severity Reaction Status Date / Time levofloxacin [From LEVAQUIN] Allergy Unknown Verified 07/28/22 11:26 [facility] Medical History (Updated 08/13/22 @ 00:25 by Wilmer Gomez MD) Brain injury Depression HLD (hyperlipidemia) Left upper arm injury Surgical History (Updated 08/11/22 @ 15:54 by Lisa Maldonado, RN) History of surgery on upper extremity Family History (Updated 08/11/22 @ 15:55 by Lisa Maldonado, RN) Family history of myocardial infarction Social History (Updated 08/11/22 @ 15:47 by Lisa Maldonado, RN) Smoking Status: Current every day smoker alcohol intake: never substance use type: former substance user current occupational status: disabled Travel in the last 8 weeks: None household members: family ROS Obtained: Yes All systems reviewed & no additional complaints except as documented Physical Exam General General appearance: alert Head Head exam: normocephalic Eye Eye exam: Present PERRL and EOMI ENT ENT exam: Present mucous membranes moist Neck Neck exam: Present trachea midline Respiratory Respiratory exam: Absent respiratory distress Cardiovascular Cardiovascular exam: Present regular rate Abdominal Exam Abdominal exam: Present soft, tenderness and Pressley's sign Abdominal tenderness: Present RUQ and mild Extremities Exam Extremities exam: Present full ROM Neurological Exam Neurological exam: Present alert, oriented X3 and motor sensory deficit Skin Skin exam: Absent rash Medical Decision Making Medical Records Medical records review
[2022-08-13 00:36] VITALS: BP 128/88; PULSE 88; RESP 18; TEMP 36.6; O2SAT 99
== END 2022-08-13 00:46 | disposition home or self-care (01) ==
PROVIDERS: Emergency Provider Emergency Medicine; PCP Emergency Medicine
DX: R10.9 Unspecified abdominal pain (principal); Z79.899 Other long term (current) drug therapy; F32.A Depression, unspecified; G43.909 Migraine, unspecified, not intractable, without status migrainosus; K21.9 Gastro-esophageal reflux disease without esophagitis; Z88.1 Allergy status to other antibiotic agents; E78.5 Hyperlipidemia, unspecified
CPT/HCPCS: 80053; 81001; 82150; 83690; 85025; 96365; 96375; 99284; J2405

== ENCOUNTER 2022-08-17 07:53 | Day surgery (SDC) | payer OTHER, SELFPAY ==
[2022-08-11 15:57] VITALS: BMI 29.5
[2022-08-17] VITALS (12 sets, daily range): BP systolic 102–149; BP diastolic 55–82; PULSE 71–79; RESP 16–18; TEMP 36.2–43; O2SAT 92–96
--- NOTE | 2022-08-17 11:21 | P.PN_ITS ---
[facility] Medical History Brain injury Depression HLD (hyperlipidemia) Left upper arm injury Surgical History History of surgery on upper extremity Family History Other Family history of myocardial infarction Social History Smoking Status: Current every day smoker alcohol intake: never substance use type: former substance user current occupational status: disabled Travel in the last 8 weeks: None household members: family [facility] Anesthesia Checklist Patient Identification Patient Identification: Arm Band Structural Data Admitted From: Home Planned Operative Procedure/s: Laparoscopic Cholecystectomy, Umbilical Hernia Repair Consent for Planned Operative Procedure(s) Verified: Yes Verified Documents: Surgical Consent and History and Physical NPO Status Verified Time NPO: 00:00 Additional verifications Anesthesia Reactions: No Hx Blood Transfusions: No Blood Transfusion Reaction: No Airway Assessment C-Spine Mobility Assessed: Yes TMJ Mobility Assessed: Yes Dentition: Poor Dentition Neurological Assessment Level of Consciousness: Awake and Alert Anesthesia Plan Anesthesia Risk discussed: Yes Anesthesia Plan: Verified ASA Class: II Anesthesia Type: General
--- NOTE | 2022-08-17 12:41 | EXP.OP.NOTE ---
Date of procedure: 08/17/22 Pre-op Diagnosis:: Symptomatic gallstones Umbilical hernia Post-op Diagnosis:: Same, liver disease Procedure performed:: Laparoscopic cholecystectomy Open umbilical hernia repair Laparoscopic liver biopsy Surgeon:: Lc Askew MD [employer]AKFAST INNKEEPER:: Markos Lora Anesthesia: GETA Estimated blood loss (mL): 30 Clinical Note:: Patient presents for laparoscopic cholecystectomy and open umbilical hernia repair.? He is a 52-year-old male who was referred by Dr. Gomez for umbilical hernia and I had initially seen him in the office on 07/14/2022.? Patient states that he does have a psychiatrist.? He describes pain in the right upper quadrant and subcostal area as well as the right upper flank.? Interestingly it seems to be worse when he coughs.? He describes it as feeling as though something had jumped out of his abdomen and over his rib cage resulting in some swelling.? It seems to be somewhat positional interestingly.? He had a CT scan performed which revealed findings of fatty infiltration of the liver and small umbilical hernia containing fat.? Given the nature of the patient's symptoms I felt that it was unlikely that the tiny umbilical hernia was causing the symptoms and I had him undergo gallbladder ultrasound.? Gallbladder ultrasound done on 07/17/2022 revealed findings of possible small umbilical hernia.? If indicated, CT could further evaluate.? Fatty liver.? Probable polyps within the gallbladder without a well-defined stone. ? His CT scan was on 07/08/2022 which revealed small umbilical hernia and fatty infiltration of the liver.? The patient has been given hydrocodone for this pain by his primary care provider. He was scheduled for laparoscopic cholecystectomy and open umbilical hernia repair. Of note, the patient had presented to the emergency department for right upper quadrant pain on 08/12/2022 and managed as an outpatient. Patient has had consistently slightly elevated AST with his ER visits and preoperative assessment. Operative findings:: Patient had an extremely tiny umbilical hernia measuring estimated 7 mm defect. He had somewhat thickened gallbladder. There were several small stones which were suctioned from the gallbladder. He had significant fatty liver with evidence of development of cirrhosis. Biopsy was performed. Cystic duct and cystic artery were densely adherent to one another. Operative note:: Patient was taken the operating room. He was given preoperative intravenous antibiotics. In the operating room he was placed in a supine position. General anesthesia was induced via endotracheal tube. Abdomen was prepped and draped in the standard surgical fashion. Infraumbilical skin incision was made. Dissection was carried down to the hernia sac which was densely adherent to the umbilical subdermal's. Using Metzenbaum dissection it was dissected free from the umbilical subdermis. Extraneous hernia sac was excised using electrocautery to normal fascia. Overall size of the defect measured about 7 mm. Burnett blunt trocar was inserted in the peritoneal cavity and secured with 0 Vicryl fascial stay sutures. CO2 pneumoperitoneum was achieved to 15 mmHg. Abdominal surveillance was then carried out laparoscopically. He was found to have some significant fatty infiltration of liver and findings consistent with cirrhosis. He was positioned in reverse Trendelenburg with left side down. A couple 5 mm trochars were inserted in the right upper abdomen. 10 mm trocar was inserted in the epigastrium. Gallbladder was identified and grasped and retracted anteriorly and superiorly over the dome of the liver. Blunt dissection was carried out the neck of the gallbladder bluntly incising the visceral peritoneum. Visceral peritoneum was incised lateral along the gallbladder. Ultimately cystic duct was identified. It was rather difficult to discern whether this was cystic duct or cystic artery. Consideration was being given for i
--- NOTE | 2022-08-17 13:36 | EXP.ANES.I ---
[facility] Anesthesia Record Part I Anesthesia Record I Intake, IV Amount: 1,200 Estimated blood loss (mL): 10 Urine output (mL): 0 Blood Products used (#): none Blood Pressure: 149/73 SaO2: 92 Pulse Rate: 72 Respiratory Rate: 16 Temperature: 98 F Patient is:: Drowsy and Stable Stable to PACU at:: 12:45
--- NOTE | 2022-08-17 13:45 | EXP.ANES.II ---
[facility] Anesthesia Record Part II Anesthesia Record Part II Discharge Time: 13:15 Destination: Surgical Day Care (OP Surgery) PACU nurse assessment reviewed?: Yes Patient Condition:: Good Anesthesia Complications:: None Swallowing reflex intact?: Yes Cyanosis?: No Blood Pressure: 134/75 Pulse Rate: 77 Temperature: 98 F Mental Status: Alert & Oriented Pain level:: 7 Nausea and/or vomitting:: None Intake, IV Amount: 0
== END 2022-08-17 13:55 | disposition home or self-care (01) ==
PROVIDERS: PCP Emergency Medicine; Visit Provider Surgery
PROC: 0FT44ZZ Resection of Gallbladder, Percutaneous Endoscopic Approach (ICD-10-PCS; CPT 47562; principal; 2022-08-17 09:30)
DX: K80.10 Calculus of gallbladder with chronic cholecystitis without obstruction (principal); K42.9 Umbilical hernia without obstruction or gangrene; Z72.0 Tobacco use; Z79.899 Other long term (current) drug therapy
CPT/HCPCS: 47562; 49585; 47379; 96374; J2405

== ENCOUNTER 2022-08-31 15:56 | Emergency (ER) | payer OTHER, SELFPAY ==
[2022-08-31 15:57] VITALS: BP 156/93; PULSE 83; RESP 18; TEMP 36.8; O2SAT 98; BMI 29.5
--- NOTE | 2022-08-31 16:11 | PC.NURSE ---
DR. MILNER AT BEDSIDE
--- NOTE | 2022-08-31 16:14 | CT_ITS ---
FINAL REPORT TECHNIQUE: Axial images through the abdomen and pelvis were performed without contrast.This study was performed with techniques to keep radiation doses as low as reasonably achievable, (ALARA). Individualized dose reduction techniques using automated exposure control or adjustment of mA and/or kV according to the patient's size were employed. CLINICAL HISTORY: concern for post operative wound dehicense , gallbladder surgery. COMPARISON: 07/08/2022 FINDINGS: ABDOMEN: The lung bases demonstrate calcified granulomas at the left lung base as well as a 2 mm, right lower lobe nodule, stable from prior exam. The heart size is normal. There is fatty infiltration of the liver. Patient is status post cholecystectomy. The spleen is normal. No adrenal mass is identified. The aorta is normal in caliber. There is no significant free fluid or adenopathy. There is a less than 3 mm nonobstructing stone in the lower pole of the left kidney. There is no hydronephrosis. PELVIS: The appendix is normal. The urinary bladder is unremarkable. There is no significant free fluid or adenopathy. IMPRESSION: Postoperative change of cholecystectomy. Nonobstructing left renal stone. Reviewed, Interpreted and Dictated by Lc Cabrera III, MD Transcribed by Michelle Ang Authenticated and [facility]
--- NOTE | 2022-08-31 16:17 | HMH.EDGENADL ---
Discharge Plan Disposition Patient Disposition: Home, Self-Care Condition: Good Prescriptions Prescriptions: No Action hydrocodone-acetaminophen 5-325 mg tablet 1 tab PO BID PRN (Reason: pain) Qty: 30 0RF sertraline 25 mg tablet 25 mg PO DAILY topiramate 100 mg tablet 100 mg PO DAILY paliperidone palm (3-month) 273 mg/0.88 mL syringe 273 mg IM [id number] atorvastatin 20 mg tablet 20 mg PO DAILY Qty: 90 0RF pantoprazole 40 mg tablet,delayed release (DR/EC) See Rx Instructions .ROUTE .COMPLEX Qty: 30 0RF Dose Instruction: TAKE 1 TABLET BY MOUTH DAILY Rx Instructions: TAKE 1 TABLET BY MOUTH DAILY hydrocodone-acetaminophen 5-325 mg Tablet 1 - 2 tab PO Q6H PRN (Reason: Pain) Qty: 17 0RF Referrals Follow up/Referrals: Wilmer Gomez MD [Primary Care Provider] - See instructions Clinical Impressions Clinical Impression: Post-op pain Instructions Patient Instructions: DI for Acute Pain -- Adult Discharge ED Provider: Nicola Jerome General Adult HPI General Chief complaint: PAIN Stated complaint: post op 08/17, pain/burning Time Seen by Provider: 08/31/22 16:05 Mode of Arrival: Ambulatory Source of Information: Patient Limitations: No Limitations Description of Symptoms (Recalled from ER Triage Doc. by RN): PT REPORTS ABDOMINAL PAIN AFTER LIFTING GRANDSON OFF SCHOOL BUS. PT HAD LAP GALLBLADDER AND HERNIA SURGERY ON 08/17 History of Present Illness HPI narrative: Patient is a 52-year-old male with a recent history of laparoscopic cholecystectomy on 08/17 who presents with abdominal pain. He says that he was lifting his grandson out of the wheelchair off the school bus earlier today when he felt a stabbing pain on his right side. He says it felt hot and was burning. He says that this persisted and he called the surgeon's office who recommended that he come here for evaluation and CT scan. He says that the pain has gotten a little bit better but still locates it on the right side. Denies any nausea. Denies any diarrhea. This is the first time this has happened since her surgery. Denies any other complaints at this time. Related Data Home Medications Medication Instructions Recorded Confirmed paliperidone palm (3-month) 273 273 mg IM [id number] hallucinations 06/22/22 08/17/22 mg/0.88 mL intramuscular syringe sertraline 25 mg tablet 25 mg PO DAILY Depression 06/22/22 08/17/22 topiramate 100 mg tablet 100 mg PO DAILY migraines 06/22/22 08/17/22 Previous Rx's Medication Instructions Recorded hydrocodone 5 mg-acetaminophen 325 1 tab PO BID PRN pain #30 tabs 07/20/22 mg tablet atorvastatin 20 mg tablet 20 mg PO DAILY elevated 08/04/22 cholesterol #90 tabs hydrocodone 5 mg-acetaminophen 325 1 - 2 tab PO Q6H PRN Pain #17 tabs 08/17/22 mg tablet pantoprazole 40 mg tablet,delayed See Rx Instructions .Route 08/17/22 release .COMPLEX #30 tabs Allergies Allergy/AdvReac Type Severity Reaction Status Date / Time levofloxacin [From LEVAQUIN] Allergy Unknown Verified 07/28/22 11:26 [facility] Disclaimer: The information contained in this section may have been updated after the patient was seen, as this information can be updated by other users. Medical History (Updated 08/31/22 @ 17:05 by Nicola Jerome MD) Brain injury Depression HLD (hyperlipidemia) Left upper arm injury Surgical History History of surgery on upper extremity Family History Other Family history of myocardial infarction Social History Smoking Status: Current every day smoker alcohol intake: never substance use type: former substance user current occupational status: disabled Travel in the last 8 weeks: None household members: family ROS Obtained: Yes All systems reviewed & n
--- NOTE | 2022-08-31 16:20 | PC.NURSE ---
PT TO CT AT THIS TIME
[2022-08-31 17:10] VITALS: BP 142/87; PULSE 76; RESP 17; TEMP 36.7; O2SAT 100
== END 2022-08-31 17:10 | disposition home or self-care (01) ==
PROVIDERS: Emergency Provider Student in an Organized Health Care Education/Training Program; PCP Emergency Medicine
DX: G89.18 Other acute postprocedural pain (principal); R10.9 Unspecified abdominal pain; Z79.899 Other long term (current) drug therapy; F32.A Depression, unspecified; G43.909 Migraine, unspecified, not intractable, without status migrainosus; E78.5 Hyperlipidemia, unspecified
CPT/HCPCS: 74176; 99284

== ENCOUNTER → 2022-10-06 12:19 | Outpatient (CLI) | payer OTHER, SELFPAY ==
--- NOTE | 2022-10-06 12:26 | CT_ITS ---
FINAL REPORT TECHNIQUE: Axial CT images of the abdomen were obtained with IV contrast only. Coronal reformatted images were also obtained. This study was performed with techniques to keep radiation doses as low as reasonably achievable (ALARA). Individualized dose reduction techniques using automated exposure control or adjustment of mA and/or kV according to the patient''s size were employed. CLINICAL HISTORY: STAT Abdominal pain after GB Surgery gb surgery 08-17, right sided abd pain after strain FINDINGS: There is calcified granuloma in the left lower lobe. The lungs are otherwise clear. The liver is enlarged and fatty infiltrated. No focal liver lesion is identified. The gallbladder is absent. No fluid collection is seen in the gallbladder fossa. The pancreas appears normal. The spleen size is within normal limits. There is no evidence of renal mass or hydronephrosis. There is no evidence of lymphadenopathy. The abdominal GI tract is within normal limits. There are small subcutaneous nodules within the subcutaneous fat overlying the gluteal musculature which may be related to injections. IMPRESSION: No acute abnormality. Enlarged fatty liver. Reviewed, Interpreted and Dictated by Za Oates MD Transcribed by Carlota Shell Authenticated and [facility]
== END ==
LOC: RAD 12:21
PROVIDERS: PCP Emergency Medicine; Visit Provider Family Medicine
DX: G89.18 Other acute postprocedural pain (principal); R10.9 Unspecified abdominal pain
CPT/HCPCS: 74160; Q9967

== ENCOUNTER → 2022-12-14 13:54 | Outpatient (CLI) | payer OTHER, SELFPAY ==
[2022-12-14 14:57] LABS: Amphetamine/Metha Screen,Urine Negative ng/ml (<1000)
[2022-12-14 15:01] LABS: Phencyclidine Screen,Urine Negative ng/ml (<25)
[2022-12-14 15:28] LABS: Barbiturates Screen,Urine Negative ng/ml (<200)
[2022-12-14 15:29] LABS: Benzodiazepines Screen,Urine Negative ng/ml (<200); Cannabinoid Screen,Urine Positive ng/ml (<50)
[2022-12-14 15:30] LABS: Cocaine Screen,Urine Negative ng/ml (<300)
[2022-12-14 15:31] LABS: Opiate Screen,Urine Positive ng/ml (<300)
[2022-12-14 16:09] LABS: Methadone Screen,Urine Negative ng/ml (<300)
== END ==
LOC: LAB.DROPOF 13:55
PROVIDERS: PCP Emergency Medicine; Visit Provider Emergency Medicine
DX: Z79.899 Other long term (current) drug therapy (principal)
CPT/HCPCS: 80305

== ENCOUNTER → 2023-02-05 13:39 | Outpatient (CLI) | payer OTHER, SELFPAY ==
--- NOTE | 2023-02-05 13:42 | XR_ITS ---
FINAL REPORT CLINICAL HISTORY: Pain @ 2nd MCP joint of Rt hand x 4 days, NKT COMPARISON: None FINDINGS: RIGHT HAND: 3 views of the right hand were obtained. 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 There is no acute fracture or dislocation. There is mild to moderate degenerative change of the 2nd MCP. Mild degenerative changes elsewhere in the hand. Visualized joint spaces are normally aligned. Soft tissues are unremarkable. IMPRESSION: Degenerative changes without acute bony abnormality. Reviewed, Interpreted and Dictated by Lc Cabrera III, MD Transcribed by Joselyn Whitney Authenticated and . [facility]
== END ==
PROVIDERS: PCP Emergency Medicine; Visit Provider Nurse Practitioner Family
DX: M79.644 Pain in right finger(s) (principal)
CPT/HCPCS: 73130

== ENCOUNTER → 2023-05-28 08:23 | Outpatient (CLI) | payer OTHER, SELFPAY ==
[2023-05-28 09:14] LABS: Basophils % 0.5 % (0.1-2.0); Eosinophils # 0.2 K/mm3 (0.0-0.4); Eosinophils % 2.5 % (0.1-12.0); Hematocrit 45.4 % (42.0-52.0); Hemoglobin 13.9 g/dL (14.1-18.0); Lymphocytes # 2.1 K/mm3 (0.7-4.5); Lymphocytes % 24.4 % (10-50); Mean Corpuscular HGB Conc 30.6 g/dL (31.8-35.4); Mean Corpuscular Hemoglobin 30.9 pg (27.0-31.2); Mean Corpuscular Volume 100.8 fl (80-94); Mean Platelet Volume 8.2 fl (7.4-10.4); Monocytes # 0.7 K/mm3 (0.1-1.0); Monocytes % 7.6 % (1.7-9.3); Neutrophils # 5.6 K/mm3 (1.8-7.8); Neutrophils % 64.9 % (37.0-80.0); Platelet Count 231 K/mm3 (142-424); Red Blood Count 4.51 M/mm3 (4.60-6.20); Red Cell Distribution Width 13.6 % (11.5-17.5); White Blood Count 8.7 K/mm3 (4.8-10.8)
[2023-05-28 09:52] LABS: Chloride 109 mmol/L (98-107)
[2023-05-28 09:53] LABS: Potassium 4.5 mmoL/L (3.5-5.1); Sodium 143 mmol/L (136-145)
[2023-05-28 09:55] LABS: Alanine Aminotransferase 62 U/L (12-78); Alkaline Phosphatase 90 U/L (38-126); Anion Gap 15.5 mEq/L (5-15); Aspartate Amino Transferase 72 U/L (17-59); Bilirubin,Total 0.4 mg/dl (0.2-1.3); Blood Urea Nitrogen 11 mg/dl (9-20); Carbon Dioxide 23 mmol/L (22.0-30.0); Estimated Glomerular Filt Rate 78 ml/min (>60); GFR (African American) 94 ML/MIN (>60)
[2023-05-28 09:56] LABS: Albumin Level 4.3 g/dl (3.5-5.0); Albumin/Globulin Ratio 1.4 (1.1-1.8); Calcium 9.7 mg/dl (8.4-10.2); Cholesterol 125 mg/dl (140-200); Glucose 119 mg/dl (74-100); HDL Cholesterol 21 mg/dl (40-60); Total Protein,Serum 7.3 g/dl (6.3-8.2); Triglycerides 137 mg/dl (30-150); VLDL Cholesterol 27 mg/dL (0-40)
[2023-05-28 10:07] LABS: Direct LDL Cholesterol 76.11 mg/dL (100-129)
[2023-05-28 10:26] LABS: Thyroid Stimulating Hormone 1.48 uIU/mL (0.465-4.68)
== END ==
PROVIDERS: PCP Emergency Medicine; Visit Provider Psychiatry & Neurology Psychiatry
DX: F25.1 Schizoaffective disorder, depressive type (principal)
CPT/HCPCS: 36415; 80053; 80061; 83036; 84443; 85025

== ENCOUNTER 2023-06-07 09:29 | Emergency (ER) | payer OTHER, SELFPAY ==
[2023-06-07 09:30] VITALS: BP 157/101; PULSE 108; RESP 16; TEMP 36.6; O2SAT 97; BMI 31.7
--- NOTE | 2023-06-07 10:00 | HMH.EDGENADL ---
Discharge Plan Disposition Patient Disposition: Home, Self-Care Prescriptions Prescriptions: New lidocaine HCl [Aspercreme (lidocaine HCl)] 4 % cream 1 applic topical TID PRN (Reason: pain) Qty: 120 0RF Rx Instructions: Do not combine with other lidocaine. No Action sertraline 25 mg tablet 25 mg PO DAILY topiramate 100 mg tablet 100 mg PO DAILY paliperidone palm (3 month) 273 mg/0.88 mL syringe 273 mg IM [id number] lidocaine 5 % adhesive patch,medicated 1 patch topical DAILY Qty: 30 0RF Rx Instructions: leave on most painful area for up to 12 hrs hydrocodone-acetaminophen 5-325 mg tablet 1 tab PO BID Qty: 60 0RF prednisone 20 mg tablet See Rx Instructions .Route .COMPLEX Qty: 9 0RF Rx Instructions: Take 1 tablet twice daily for 3 days, then Take 1 tablet daily for 3 days; atorvastatin 20 mg tablet See Rx Instructions .ROUTE .COMPLEX Qty: 90 0RF Dose Instruction: TAKE 1 TABLET BY MOUTH DAILY FOR CHOLESTEROL Rx Instructions: TAKE 1 TABLET BY MOUTH DAILY FOR CHOLESTEROL pantoprazole 40 mg tablet,delayed release (DR/EC) See Rx Instructions .ROUTE .COMPLEX Qty: 90 0RF Dose Instruction: TAKE 1 TABLET BY MOUTH DAILY Rx Instructions: TAKE 1 TABLET BY MOUTH DAILY Referrals Follow up/Referrals: Wilmer Gomez MD [Primary Care Provider] - See instructions Activity Restrictions/Add. Instructions Additional Instructions/Restrictions: At this time is felt you are safe to be discharged home. If new or worsening symptoms please not hesitate to return the emergency department. Please apply your topical lidocaine as prescribed. If your stools become firm please buy MiraLAX [id number] and take it until your stool is soft. Please follow-up with Dr. Askew at his clinic tomorrow June 08 at 9:30 AM. Clinical Impressions Clinical Impression: External hemorrhoid, thrombosed Discharge ED Provider: Kevin Alfaro General Adult HPI General Chief complaint: PAIN Stated complaint: possible hemroids Time Seen by Provider: 06/07/23 09:46 Mode of Arrival: Ambulatory Source of Information: Patient Limitations: No Limitations Description of Symptoms (Recalled from ER Triage Doc. by RN): Patient reports pain and swelling at his rectum. States he has been in pain for four days. Patient states he thinks that he has bad hemrrhoids and just can't take the pain anymore. History of Present Illness HPI narrative: Patient is a 53-year-old male with no pertinent past medical history presents emergency department for evaluation of rectal pain. Is been going on for 4 days. Persistent, severe. No bloody bowel movements. No constipation. No other acute complaints at this time. Related Data Home Medications Medication Instructions Recorded Confirmed paliperidone palm (3 month) 273 273 mg IM [id number] hallucinations 06/22/22 02/08/23 mg/0.88 mL intramuscular syringe sertraline 25 mg tablet 25 mg PO DAILY Depression 06/22/22 02/08/23 topiramate 100 mg tablet 100 mg PO DAILY migraines 06/22/22 02/08/23 Previous Rx's Medication Instructions Recorded lidocaine 5 % topical patch 1 patch topical DAILY #30 ea 10/19/22 hydrocodone 5 mg-acetaminophen 325 1 tab PO BID #60 tabs 02/08/23 mg tablet prednisone 20 mg tablet See Rx Instructions .Route 02/08/23 .COMPLEX #9 tabs atorvastatin 20 mg tablet See Rx Instructions .Route 04/16/23 .COMPLEX #90 tabs pantoprazole 40 mg tablet,delayed See Rx Instructions .Route 04/16/23 release .COMPLEX #90 tabs lidocaine HCl 4 % topical cream 1 applic topical TID PRN pain #120 06/07/23 (Aspercreme (lidocaine HCl)) grams Allergies Allergy/AdvReac Type Severity Reaction Status Date / Time levofloxacin [From LEVAQUIN] Allergy Unknown Verified 02/08/23 16:16 [facility] Disclaimer: The information contained in this section may have been updated after the patient was seen, as th
--- NOTE | 2023-06-07 10:01 | PC.NURSE ---
appointment made with Dr. Askew for pt: Wednesday at 9:30am
--- NOTE | 2023-06-07 10:06 | PC.NURSE ---
Rounded on patient no needs at this time.
[2023-06-07 10:35] VITALS: BP 152/98; PULSE 97; RESP 18; TEMP 36.6; O2SAT 99
== END 2023-06-07 10:37 | disposition home or self-care (01) ==
PROVIDERS: Emergency Provider Emergency Medicine; PCP Emergency Medicine
DX: K64.5 Perianal venous thrombosis (principal); F32.A Depression, unspecified; F17.200 Nicotine dependence, unspecified, uncomplicated
CPT/HCPCS: 99283

== ENCOUNTER 2023-10-04 16:34 | Emergency (ER) | payer OTHER, SELFPAY ==
[2023-10-04 16:35] VITALS: BP 123/79; PULSE 79; RESP 16; TEMP 36.7; O2SAT 99; BMI 31.0
[2023-10-04] MEDS: METHOCARBAMOL 500MG TABLET 750 MG PO (17:11)
[2023-10-04] MEDS: ACETAMINOPHEN 500MG TAB 1000 MG PO (17:11)
[2023-10-04] MEDS: IBUPROFEN 600 MG TABLET PO (17:12)
[2023-10-04] MEDS: DEXAMETHASONE 4MG TABLET 10 MG PO (17:12)
[2023-10-04] MEDS: LIDOCAINE 5% TRANSDERMAL PATCH 1 EACH TP (17:12)
--- NOTE | 2023-10-04 17:13 | ED_ITS ---
Discharge Plan Disposition Patient Disposition: Home, Self-Care Prescriptions Prescriptions: New prednisone 20 mg tablet 40 mg PO DAILY 5 Days Qty: 10 0RF methocarbamol 750 mg tablet 1,500 mg PO TID 5 Days Qty: 30 0RF lidocaine 5 % adhesive patch,medicated 1 patch topical DAILY Qty: 15 0RF Rx Instructions: leave on most painful area for up to 12 hrs No Action hydrocortisone [Anusol-HC] 2.5 % cream with perineal applicator 1 applic MI QD-BID PRN (Reason: hemorrhoids) Qty: 30 0RF polyethylene glycol 3350 [Miralax] 17 gram/dose powder 17 g PO DAILY Qty: 119 0RF sertraline 25 mg tablet 25 mg PO DAILY topiramate 100 mg tablet 100 mg PO DAILY paliperidone palm (3 month) 273 mg/0.88 mL syringe 273 mg IM [id number] lidocaine 5 % adhesive patch,medicated 1 patch topical DAILY Qty: 30 0RF Rx Instructions: leave on most painful area for up to 12 hrs hydrocodone-acetaminophen 5-325 mg tablet 1 tab PO BID Qty: 60 0RF prednisone 20 mg tablet See Rx Instructions .Route .COMPLEX Qty: 9 0RF Rx Instructions: Take 1 tablet twice daily for 3 days, then Take 1 tablet daily for 3 days; atorvastatin 20 mg tablet See Rx Instructions .ROUTE .COMPLEX Qty: 90 0RF Dose Instruction: TAKE 1 TABLET BY MOUTH DAILY FOR CHOLESTEROL Rx Instructions: TAKE 1 TABLET BY MOUTH DAILY FOR CHOLESTEROL pantoprazole 40 mg tablet,delayed release (DR/EC) See Rx Instructions .ROUTE .COMPLEX Qty: 90 0RF Dose Instruction: TAKE 1 TABLET BY MOUTH DAILY Rx Instructions: TAKE 1 TABLET BY MOUTH DAILY lidocaine HCl [Aspercreme (lidocaine HCl)] 4 % cream 1 applic topical TID PRN (Reason: pain) Qty: 120 0RF Rx Instructions: Do not combine with other lidocaine. Referrals Follow up/Referrals: Manuelito Wallace DO [Primary Care Provider] - See instructions Activity Restrictions/Add. Instructions Additional Instructions/Restrictions: Call your family doctor to establish care for this visit to the emergency department and schedule follow-up within 48 hours to ensure improvement. If you have any worsening of your condition or any other concerning signs or symptoms, return to the emergency department or your primary care doctor for further evaluation. Talk to Dr. Meléndez about scheduling occupational therapy versus physical therapy for your neck. Prednisone every morning for 5 days and Robaxin as prescribed. Robaxin can cause you to feel drowsy. Do not drive, operate heavy machinery, or engage in any activity that may make you tired, fall asleep, and because harm to yourself or others while taking this medication. Take Tylenol 1000 mg every 6 hours (4 times daily) and ibuprofen 400 mg every 6 hours (4 times daily) as needed with food and water to prevent GI upset and kidney damage. Clinical Impressions Clinical Impression: Cervical spine pain Discharge ED Provider: Adriel Aragon General Adult HPI General Chief complaint: PAIN Stated complaint: back and neck pain, no inj. Time Seen by Provider: 10/04/23 16:36 Mode of Arrival: Ambulatory Source of Information: Patient Limitations: No Limitations Description of Symptoms (Recalled from ER Triage Doc. by RN): Patient reports pain where his neck and back meet. States it started today and that he has not had an injury that he knows of. States that he did have his grandchild and dog in the bed with him last night and that this kind of feels like he has whiplash. History of Present Illness HPI narrative: 53-year-old male no relevant medical history presenting with neck pain. Patient states he has had pinching in my neck, before, but this was about 20 years ago. Last night, he thinks he slept on it wrong. Having a pinching station his C6 vertebra. Having difficulty turning his neck secondary to pinching/stabbing pain. Denies weakness, bowel or bladder dysfunction, the deficits, or any other concerns. Has not taken anything for the pain. Related Data Home Medications Medication Instructions Recorded Confirmed paliperidone palm (3 month) 273 273 mg IM [id number] hallucinations 06/22/22 06/08/23 mg/0.88 mL intramuscular syringe sertraline 25 mg tablet 25 mg PO DAILY Depression 06/22/22 06/08/23 topiramate 100 mg tablet 100 mg PO DAILY migraines 06/22/22 06/08/23 Previous Rx's Medication Instructions Recorded lidocaine 5 % topical patch 1 patch topical DAILY #30 ea 10/19/22 hydrocodone 5 mg-acetaminophen 325 1 tab PO BID #60 tabs 02/08/23 mg tablet prednisone 20 mg tablet See Rx Instructions .Route 02/08/23 .COMPLEX #9 tabs lidocaine HCl 4 % topical cream 1 applic topical TID PRN pain #120 06/07/23 (Aspercreme (lidocaine HCl)) grams hydrocortisone 2.5 % topical cream 1 applic MI QD-BID PRN hemorrhoids 06/08/23 with perineal applicator #30 grams (Anusol-HC) polyethylene glycol 3350 17 17 g PO DAILY #119 grams 06/08/23 gram/dose oral powder (Miralax) atorvastatin 20 mg tablet See Rx Instructions .Route 07/21/23 .COMPLEX #90 tabs pantoprazole 40 mg tablet,delayed See Rx Instructions .Route 07/21/23 release .COMPLEX #90 tabs lidocaine 5 % topical patch 1 patch topical DAILY #15 ea 10/04/23 methocarbamol 750 mg tablet 1,500 mg PO TID 5 days #30 tabs 10/04/23 prednisone 20 mg tablet 40 mg PO DAILY 5 days #10 tabs 10/04/23 Allergies Allergy/AdvReac Type Severity Reaction Status Date / Time levofloxacin [From LEVAQUIN] Allergy Unknown Verified 06/08/23 09:35 [facility] Disclaimer: The information contained in this section may have been updated after the patient was seen, as this information can be updated by other users. Medical History Abdominal pain Abnormal chest x-ray Brain injury Bronchitis Dental abscess Depression Gallbladder polyp Left upper arm injury Obesity Post-op pain Sinusitis Strep throat Surgical History History of hernia repair History of laparoscopic cholecystectomy History of surgery on upper extremity Family History Other Family history of myocardial infarction Social History Smoking Status: Current every day smoker alcohol intake: never substance use type: former substance user current occupational status: disabled Travel in the last 8 weeks: None household members: family ROS Obtained: Yes All systems reviewed & no additional complaints except as documented Physical Exam General General appearance: alert and in no apparent distress Head Head exam: atraumatic and normocephalic Eye Eye exam: Present normal appearance, PERRL and EOMI ENT ENT exam: Present mucous membranes moist Neck Neck exam: Present normal inspection, full ROM, trachea midline and tenderness (Midline C6/C7 vertebral tenderness.) Respiratory Respiratory exam: Absent respiratory distress, wheezes, stridor, accessory muscle use or prolonged expiratory phase Cardiovascular Cardiovascular exam: Present normal rhythm Abdominal Exam Abdominal exam: Present soft; Absent distention, tenderness, guarding, rebound or rigidity Extremities Exam Extremities exam: Absent edema Neurological Exam Neurological exam: Present alert, oriented X3, CN II-XII intact and normal gait; Absent motor sensory deficit Skin Skin exam: Present warm and dry; Absent diaphoresis or erythema Medical Decision Making Medical Records Medical records reviewed: Yes I reviewed the patient's medical records. Darrel Inquiry Pt receiving controlled substance: No Darrel was queried for this patient: No Vital Signs: 10/04/23 16:35 Temperature 98.0 F Temperature Source Oral Pulse Rate [Radial] 79 Respiratory Rate 16 Blood Pressure [Right Arm] 123/79 Blood Pressure Mean [Right Arm] 93 Blood Pressure Source [Right Arm] Automatic Cuff Blood Pressure Position [Right Arm] Sitting 02 Sat by Pulse Oximetry 99 Oxygen Delivery Method Room Air Orders (Tests/Meds): ED MEDICATIONS Discontinued Medications Generic Name Dose Route Start Last Admin Trade Name Francisco Javierq PRN Reason Stop Dose Admin Acetaminophen 1,000 mg 10/04/23 17:03 10/04/23 17:11 Acetaminophen 500mg Tab PO 10/04/23 17:04 1,000 mg ONCE ONE Administration Dexamethasone 10 mg 10/04/23 17:03 10/04/23 17:12 Dexamethasone 4mg Tablet PO 10/04/23 17:04 10 mg ONCE ONE Administration Ibuprofen 600 mg 10/04/23 17:03 10/04/23 17:12 Ibuprofen 600 Mg Tablet PO 10/04/23 17:04 600 mg ONCE ONE Administration Lidocaine 1 each 10/04/23 17:03 10/04/23 17:12 Lidocaine 5% Transdermal Patch TP 10/04/23 17:04 1 each ONCE ONE Administration Methocarbamol 750 mg 10/04/23 17:03 10/04/23 17:11 Methocarbamol 500mg Tablet PO 10/04/23 17:04 750 mg ONCE ONE Administration Medical Decision Narrative: 53-year-old male no relevant medical history presenting with neck pain. Patient states he has had pinching in my neck, before, but this was about 20 years ago. Last night, he thinks he slept on it wrong. Having a pinching station his C6 vertebra. Having difficulty turning his neck secondary to pinching/stabbing pain. Denies weakness, bowel or bladder dysfunction, the deficits, or any other concerns. Has not taken anything for the pain. History was obtained via conversation with patient. On arrival, patient hemodynamically stable, alert, oriented x4, appropriate, GCS 15, moving all extremities spontaneously, pupils equal and reactive to light. Full physical exam performed and significant for well-appearing male who is in no acute distress, but decreased range of motion of neck secondary to pain. Neurovascularly intact. Midline spinal tenderness at C6/C7. Differential includes myelopathy, radiculopathy, disc herniation, osteoarthritis, among others. Patient was given Robaxin, Decadron, lidocaine patch for symptomatic management and correction of underlying abnormalities. Imaging including CT and MRI were considered, but because patient not having red flag signs or symptoms, deemed unnecessary at this time and more amenable to outpatient management with his primary care doctor. On reevaluation, patient feeling mildly better, meds were sent to pharmacy. Given patient presentation, workup, history, this most likely represents disc herniation versus radiculopathy versus cervical osteoarthritis. Less likely to be cord compression given negative physical exam for red flag symptoms. Because patient at baseline without signs or symptoms of clinical decompensation, deemed appropriate for discharge. Results were relayed to patient who voiced understanding and were agreeable to outpatient management and follow up. At the time of discharge the patient was hemodynamically stable, tolerating PO, and mobilizing appropriately. Critical Care Critical Care Time Critical Care Time: No
[2023-10-04 18:28] VITALS: BP 118/67; PULSE 74; RESP 18; TEMP 36.7; O2SAT 99
== END 2023-10-04 18:29 | disposition home or self-care (01) ==
PROVIDERS: Emergency Provider Emergency Medicine; PCP Internal Medicine
DX: M54.2 Cervicalgia (principal); F17.200 Nicotine dependence, unspecified, uncomplicated
CPT/HCPCS: 99283

== ENCOUNTER 2024-10-18 10:08 | Emergency (ER) | payer SELFPAY ==
--- NOTE | 2024-10-18 10:33 | XR_ITS ---
FINAL REPORT CLINICAL HISTORY: fall on ice, right foot and ankle pain COMPARISON: None FINDINGS: RIGHT FOOT 3 views of the right foot were obtained. There is no acute fracture or dislocation. Visualized joint spaces are normally aligned. There is a small plantar spur. Soft tissues are unremarkable. IMPRESSION: No acute bony abnormality. Reviewed, Interpreted and Dictated by Ti Fitzgerald MD Transcribed by Joselyn Whitney Authenticated and [facility]
--- NOTE | 2024-10-18 10:33 | XR_ITS ---
FINAL REPORT CLINICAL HISTORY: fall on ice, right foot and ankle pain COMPARISON: None FINDINGS: RIGHT ANKLE 3 views of the right ankle were obtained. There is no acute fracture or dislocation. The mortise is intact. Visualized joint spaces are normally aligned. There is a small plantar spur. Soft tissues are unremarkable. IMPRESSION: No acute bony abnormality. Reviewed, Interpreted and Dictated by Ti Fitzgerald MD Transcribed by Joselyn Whitney Authenticated and . [facility]
[2024-10-18 11:06] VITALS: BP 130/86; PULSE 79; RESP 18; TEMP 36.8; O2SAT 96; BMI 30.8
--- NOTE | 2024-10-18 11:15 | ED_ITS ---
Discharge Plan Disposition Patient Disposition: Home, Self-Care Condition: Good Prescriptions Prescriptions: New ibuprofen 600 mg tablet 600 mg PO Q6HP PRN (Reason: Mild Pain) Qty: 30 0RF ondansetron 4 mg Tablet,Disintegrating 4 mg PO Q8H PRN (Reason: Nausea) Qty: 12 0RF Referrals Follow up/Referrals: Provider,Referral, MD [Primary Care Provider] - See instructions Dodie Ríos DPM [Staff Physician] - See instructions Activity Restrictions/Add. Instructions Additional Instructions/Restrictions: Rest the extremity, apply ice for 15 minutes as tolerated three or four times per day, Wear the etienne wrap for compression, Elevate the extremity as tolerated while you are resting. Take ibuprofen for pain. I sent in a prescription to your pharmacy. Follow up with Dr. Ríos (podiatry). I put in a referral but you need to call her office and schedule an appointment. Follow up with your regular doctor. GO TO THE ER FOR ANY WORSENING SYMPTOMS Clinical Impressions Clinical Impression: Right foot sprain, Heel spur Stand Alone Forms Stand Alone Forms: Work/School Release Instructions Patient Instructions: DI for Foot Sprain, How to Apply an Elastic Wrap on Ankle Print Language Print Language: Vietnamese Discharge ED Provider: [facility] James [facility] General Stated complaint: right heel pain painful to walk Mode of Arrival: Ambulatory Source of Information: Patient Time Seen by Provider: 10/18/24 11:01 Description of Symptoms (Recalled from Triage Doc. by RN): FELL ON ICE AND HURT RIGHT FOOT HEENT Symptoms (Recalled from RN notes): No Resp Symptoms (Recalled from RN notes): No Skin Symptoms (Recalled from RN notes): No MS Symptoms (Recalled from RN notes): Yes Functional Status (Recalled from RN notes): WNL History of Present Illness Provider Complaint: He states that 1 day ago he slipped on ice and fell. He has had right ankle and right heel pain since then. He denies any other injury. Related Data Previous Rx's ?Medication ?Instructions ?Recorded ibuprofen 600 mg tablet 600 mg PO Q6HP PRN Mild Pain #30 10/18/24 tabs ondansetron 4 mg disintegrating 4 mg PO Q8H PRN Nausea #12 tabs 10/18/24 tablet Allergies Allergy/AdvReac Type Severity Reaction Status Date / Time levofloxacin (From LEVAQUIN) Allergy Unknown Verified 06/08/23 09:35 Worker's Comp Is this a Worker's Comp case?: No [facility] Disclaimer: The information contained in this section may have been updated after the patient was seen, as this information can be updated by other users. Medical History Abdominal pain Abnormal chest x-ray Brain injury Bronchitis Dental abscess Depression Gallbladder polyp Left upper arm injury Obesity Post-op pain Sinusitis Strep throat Surgical History History of hernia repair History of laparoscopic cholecystectomy History of surgery on upper extremity Family History Other Family history of myocardial infarction Social History Smoking Status: Current every day smoker alcohol intake: never substance use type: former substance user current occupational status: disabled Travel in the last 8 weeks: None household members: family Have you lived/traveled outside [place] in past 30 days?: No Contact w/someone who lives/traveled outside [place] past 30 days?: No Exposure to someone with infectious disease in past 14 days?: No Do you have a fever (greater than 100.4 F or 38 C)?: No Have you tested positive for COVID-19: No Exposed to someone with COVID-19 in past 14 days?: No Do you have a sore throat?: No Do you have a cough?: No Do you have any weakness?: No Do you have any diarrhea?: No Are you experiencing any unusual bleeding?: No Do you have any muscle aches/pain?: No Do you have any abdominal pain?: No Are you experiencing loss of taste or smell?: No ROS Obtained: Yes All systems reviewed & no additional complaints except as documented Constitutional Constitutional: Denies chills and Denies fever(s) Eyes Eyes: Denies eye discharge ENT Ears, Nose, Mouth, and Throat: Denies dizziness, Denies otalgia and Denies sore throat Cardiovascular Cardiovascular: Denies chest pain Respiratory Respiratory: Denies shortness of breath, Denies chest congestion, Denies cough, Denies stridor and Denies wheezing Gastrointestinal Gastrointestingal: Denies nausea or vomiting Musculoskeletal Musculoskeletal: Reports as per HPI Integumentary/Breasts Skin/Breast: Denies redness, Denies rash and Denies wounds Neurologic Neurologic: Denies dizziness and Denies paresthesias Allergic/Immunologic Allergic/Immunologic: Denies wheezing Physical Exam General General appearance: alert and in no apparent distress Head Head exam: atraumatic, normocephalic and normal inspection Eye Eye exam: Present normal appearance, PERRL and EOMI ENT ENT exam: Present normal exam, normal oropharynx, mucous membranes moist, TM's normal bilaterally and normal external ear exam Neck Neck exam: Present normal inspection, full ROM and trachea midline; Absent meningismus or lymphadenopathy Chest Chest inspection: Present normal inspection and symmetric chest wall rise; Absent tenderness Respiratory Respiratory exam: Present normal lung sounds bilaterally; Absent respiratory distress Cardiovascular Cardiovascular exam: Present regular rate and normal rhythm; Absent JVD Abdominal Exam Abdominal exam: Present soft and normal bowel sounds; Absent distention, tenderness or guarding Extremities Exam Extremities exam: Present normal capillary refill; Absent calf tenderness Expanded Lower Extremity Exam Right: Knee exam: Present normal inspection, full ROM and knee extension intact; Absent tenderness Lower leg exam: Present normal inspection, full ROM and Achilles tendon intact; Absent tenderness or Homans' sign Ankle exam: Present full ROM and tenderness; Absent swelling, abrasion, laceration, ecchymosis, deformity, crepitus, dislocation, erythema, tenderness over talofibular lig or anterior draw sign Foot/toe exam: Present full ROM and tenderness; Absent swelling, abrasion, laceration, ecchymosis, deformity, crepitus, dislocation, erythema, amputation, puncture wound, foreign body, calcaneal tenderness, tenderness at base of 5th metatarsal, nail avulsion or subungual hematoma Neurovascular/Tendon exam: Present normal capillary refill, normal 2-point discrimination and normal fine/light touch; Absent pulse deficit, motor deficit, sensory deficit, tendon deficit, extremity cold to touch or pallor Gait: observed and normal Back Exam Back exam: Present normal inspection; Absent tenderness Neurological Exam Neurological exam: Present alert and oriented X3 Psychiatric Psychiatric exam: Present normal affect and normal mood Skin Skin exam: Present warm, dry, intact and normal color Lymphatic Lymphatic Findings: no adenopathy Medical Decision Making Medical Records Medical records reviewed: No I reviewed the patient's medical records. Screening: Per USPSTF and CDC recommendations, given the prevalence of disease in our region, it is our hospital?s policy to screen for HIV and viral Hepatitis for all patients aged 18 and over and those with ongoing risk factors. Darrel Inquiry Pt receiving controlled substance: No Vital Signs: 10/18/24 11:06 Temperature 98.3 F Temperature Source Oral Pulse Rate [Left Radial] 79 Respiratory Rate 18 Blood Pressure [Left Arm] 130/86 Blood Pressure Mean [Left Arm] 100 02 Sat by Pulse Oximetry 96 Orders (Tests/Meds): ORDERS Category Date Time Status XR ankle RT min 3V Stat Exams 10/18/24 10:33 Taken XR foot RT min 3V Stat Exams 10/18/24 10:33 Taken Radiology Data #1: Image(s): Ankle Image Reviewed: Yes I reviewed the patient's radiology image and Yes I have reviewed radiologist's interpretation
[2024-10-18 12:44] VITALS: BP 130/86; PULSE 79; RESP 18; TEMP 36.8
== END 2024-10-18 12:45 | disposition home or self-care (01) ==
PROVIDERS: Emergency Provider Nurse Practitioner Family
DX: M77.30 Calcaneal spur, unspecified foot (principal); S93.601A Unspecified sprain of right foot, initial encounter
CPT/HCPCS: 73610; 73630; 99213; G0381

== ENCOUNTER 2024-12-16 13:32 | Emergency (ER) | payer SELFPAY ==
[2024-12-16 13:36] VITALS: BP 152/112; PULSE 86; O2SAT 98
[2024-12-16 13:40] VITALS: BP 152/112; PULSE 88; RESP 19; TEMP 36.6; O2SAT 98; BMI 32.5
--- NOTE | 2024-12-16 13:47 | ED_ITS ---
Discharge Plan Disposition Patient Disposition: Home, Self-Care Chief Complaint: Wound/Laceration Prescriptions Prescriptions: No Action ibuprofen 600 mg tablet 600 mg PO Q6HP PRN (Reason: Mild Pain) Qty: 30 0RF ondansetron 4 mg Tablet,Disintegrating 4 mg PO Q8H PRN (Reason: Nausea) Qty: 12 0RF Referrals Follow up/Referrals: Provider,Referral, MD [Primary Care Provider] - See instructions Activity Restrictions/Add. Instructions Additional Instructions/Restrictions: Follow-up with your family doctor as needed for this visit to the emergency department. Any other concerning signs or symptoms, return to your family doctor or the emergency department for further evaluation. Clinical Impressions Clinical Impression: Laceration of scalp Qualifiers: Encounter type: initial encounter Qualified Code(s): S01.01XA - Laceration without foreign body of scalp, initial encounter Instructions Patient Instructions: DI for Laceration Repair Print Language Print Language: Estonian Discharge ED Provider: Adriel Aragon General Adult HPI General Chief complaint: Wound/Laceration Stated complaint: AO 12/16, head laceration Time Seen by Provider: 12/16/24 13:36 Mode of Arrival: Ambulatory Source of Information: Patient Description of Symptoms (Recalled from ER Triage Doc. by RN): pt presents to ED with c/o laceration to back of head. pt states that he was swinging a claw hammer and swung back to far hitting himself in the head. no loc, no n/v. pt rpeorts headache. tender with palpation. unknown tetanus hx. History of Present Illness HPI narrative: Please note that above description of symptoms, in this electronic medical record under categorization of recalled from ER triage doctor by RN are reflective of an initial nursing assessment, however, is not reflective of my full history and physical exam that was personally taken and clarified. Consequentially, this preceding description of symptoms, which may include the patient's categorized chief complaint in the EMR, do not reflect my personal clinical impression, and the ultimate description of history of present illness and patient stated complaints should be deferred to this section of the note. Unless stated otherwise or congruent with this section of the note, additional signs, symptoms, or incongruence should be interpreted as inaccurate with my clinical impression. Related Data Previous Rx's ?Medication ?Instructions ?Recorded ibuprofen 600 mg tablet 600 mg PO Q6HP PRN Mild Pain #30 10/18/24 tabs ondansetron 4 mg disintegrating 4 mg PO Q8H PRN Nausea #12 tabs 10/18/24 tablet Allergies Allergy/AdvReac Type Severity Reaction Status Date / Time levofloxacin (From LEVAQUIN) Allergy Unknown Verified 06/08/23 09:35 [facility] Disclaimer: The information contained in this section may have been updated after the patient was seen, as this information can be updated by other users. Medical History Abdominal pain Abnormal chest x-ray Brain injury Bronchitis Dental abscess Depression Gallbladder polyp Left upper arm injury Obesity Post-op pain Sinusitis Strep throat Surgical History History of hernia repair History of laparoscopic cholecystectomy History of surgery on upper extremity Family History Other Family history of myocardial infarction Social History Smoking Status: Current every day smoker alcohol intake: never substance use type: former substance user current occupational status: disabled Travel in the last 8 weeks: None household members: family Other Medical History Have you received the Pneumonia Vaccine: No ROS Obtained: Yes All systems reviewed & no additional complaints except as documented Physical Exam General General appearance: alert Head Head exam: normocephalic and other (2 superficial lacerations on the scalp. Hemostatic, do not gape) Eye Eye exam: Present normal appearance, PERRL and EOMI Neck Neck exam: Present normal inspection, full ROM and trachea midline Respiratory Respiratory exam: Absent respiratory distress, wheezes, stridor, accessory muscle use or prolonged expiratory phase Cardiovascular Cardiovascular exam: Present other (Pulses equal symmetric in upper and lower extremities) Abdominal Exam Abdominal exam: Present soft; Absent distention, tenderness or pulsatile mass Extremities Exam Extremities exam: Absent edema Neurological Exam Neurological exam: Present alert, oriented X3 and CN II-XII intact; Absent motor sensory deficit Skin Skin exam: Present warm and dry; Absent diaphoresis or erythema Medical Decision Making Medical Records Medical records reviewed: Yes I reviewed the patient's medical records. Screening: Per USPSTF and CDC recommendations, given the prevalence of disease in our region, it is our hospital?s policy to screen for HIV and viral Hepatitis for all patients aged 18 and over and those with ongoing risk factors. Darrel Inquiry Pt receiving controlled substance: No Darrel was queried for this patient: No Vital Signs: 12/16/24 13:40 Temperature 97.9 F Temperature Source Oral Pulse Rate [Left Radial] 88 Respiratory Rate 19 Blood Pressure [Right Arm] 152/112 H Blood Pressure Mean [Right Arm] 125 Blood Pressure Source [Right Arm] Automatic Cuff Blood Pressure Position [Right Arm] Supine 02 Sat by Pulse Oximetry 98 Oxygen Delivery Method Room Air Orders (Tests/Meds): ORDERS Category Date Time Status HIV Combo Stat Lab 12/16/24 13:46 Ordered Hepatitis C Ab Qual. W/ RFX Stat Lab 12/16/24 13:46 Ordered Medical Decision Narrative: 54-year-old male presenting with bleeding from his scalp. He states that he was ripping apart a shed outside and swung the hammer back, caught the back of his scalp with the claw of the hammer. Started bleeding, came in for further evaluation. Does not remember last tetanus was. No loss of consciousness, otherwise no remarkable history. History obtained the patient. On arrival, very clinically well-appearing. After being cleaned up, patient has 2 superficial lacerations on the posterior aspect of his scalp. Do not gape, not amenable to closure. Tetanus updated, because patient did not lose conscious, small mechanism, CT head was considered, but not deemed necessary. Because patient at baseline without signs or symptoms of clinical decompensation, deemed appropriate for discharge. I discussed my clinical impression with patient and answered all questions. At this time, the evidence for any other entities in the differential is insufficient to warrant any further testing or ED observation. This was explained as well. Advisory was given that persistent or worsening symptoms require further evaluation. I confirmed the understanding of this discussion. [employer] Engineer disclaimer Much of this encounter note is an electronic esthetician/spa coordinator spoken language to printed text. Electronic esthetician/spa coordinator of the spoken language may permit errors. Although I have reviewed the note, some errors may still exist. Critical Care Critical Care Time Critical Care Time: No
--- NOTE | 2024-12-16 13:54 | PC.NURSE ---
h gatito cleaned pts laceration on head.
[2024-12-16] MEDS: TET/DIPHTH/PERT-ADULT 0.5ML SYRINGE 0.5 ML IM (13:59)
[2024-12-16 14:07] VITALS: BP 158/102; PULSE 77; RESP 16; TEMP 36.7; O2SAT 98
== END 2024-12-16 14:11 | disposition home or self-care (01) ==
PROVIDERS: Emergency Provider Emergency Medicine
DX: S01.01XA Laceration without foreign body of scalp, initial encounter (principal); R51.9 Headache, unspecified; Z23 Encounter for immunization; Z72.0 Tobacco use; W22.8XXA Striking against or struck by other objects, initial encounter; Y93.89 Activity, other specified; Y92.89 Other specified places as the place of occurrence of the external cause
CPT/HCPCS: 90471; 90715; 99283

== ENCOUNTER 2025-06-04 12:09 | Outpatient (CLI) | payer OTHER, SELFPAY ==
--- NOTE | 2025-06-04 12:25 | XR_ITS ---
FINAL REPORT CLINICAL HISTORY: left knee pain FINDINGS: LEFT KNEE: 3 views of the left knee obtained. There is no acute fracture or dislocation. The joint spaces are intact.There are mild degenerative changes. A small joint effusion is seen.. There is no soft tissue abnormality. IMPRESSION: No acute bony abnormality. Reviewed, Interpreted and Dictated by Tosha Horn MD Transcribed by Michelle Ang Authenticated and [facility]
[2025-06-04 12:35] LABS: Hematocrit 47.6 % (42.0-52.0); Hemoglobin 16.3 g/dL (14.1-18.0); Immature Granulocytes % 0.2 %; Mean Corpuscular HGB Conc 34.2 g/dL (31.8-35.4); Mean Corpuscular Hemoglobin 32.1 pg (27.0-31.2); Mean Corpuscular Volume 93.9 fl (80-94); Nucleated Red Blood Cells % 0 %; Platelet Count 244 K/mm3 (142-424); Red Blood Count 5.07 M/mm3 (4.60-6.20); Red Cell Distribution Width-SD 45.1 fL; White Blood Count 8.3 K/mm3 (4.8-10.8)
[2025-06-04 13:02] LABS: Alanine Aminotransferase 54 U/L (12-78); Albumin Level 4.9 g/dl (3.5-5.0); Albumin/Globulin Ratio 1.3 (1.1-1.8); Alkaline Phosphatase 120 U/L (38-126); Anion Gap 13.4 mEq/L (5-15); Aspartate Amino Transferase 52 U/L (17-59); Bilirubin,Total 0.7 mg/dl (0.2-1.3); Blood Urea Nitrogen 12 mg/dl (9-20); Calcium 9.8 mg/dl (8.4-10.2); Carbon Dioxide 25 mmol/L (22.0-30.0); Chloride 105 mmol/L (98-107); Cholesterol 188 mg/dl (140-200); Creatinine,Serum 0.70 mg/dl (0.66-1.25); Estimated Glomerular Filt Rate 117 ml/min (>60); GFR (African American) 141 ML/MIN (>60); Globulin 3.7 g/dL (1.3-3.2); Glucose 108 mg/dl (74-100); HDL Cholesterol 34 mg/dl (40-60); Potassium 4.4 mmoL/L (3.5-5.1); Sodium 139 mmol/L (136-145); Total Protein,Serum 8.6 g/dl (6.3-8.2); Triglycerides 197 mg/dl (30-150); Uric Acid 7.1 mg/dl (3.5-8.5)
[2025-06-04 13:20] LABS: 25-OH Vitamin D, Total 42.7 ng/mL (30-100)
[2025-06-04 13:33] LABS: Thyroid Stimulating Hormone 4.66 uIU/mL (0.465-4.68)
[2025-06-04 13:50] LABS: Hepatitis C Ab Qual. W/ RFX NEGATIVE (Negative)
[2025-06-05 08:13] LABS: RA Latex Turbid. 25.9 IU/mL (<14.0)
== END 2025-06-04 23:59 | disposition home or self-care (01) ==
LOC: LAB 12:11
PROVIDERS: PCP Nurse Practitioner Family; Visit Provider Nurse Practitioner Family
DX: M25.562 Pain in left knee (principal); K74.00 Hepatic fibrosis, unspecified; M25.50 Pain in unspecified joint; Z13.220 Encounter for screening for lipoid disorders; Z12.5 Encounter for screening for malignant neoplasm of prostate; Z11.59 Encounter for screening for other viral diseases; Z11.4 Encounter for screening for human immunodeficiency virus [HIV]
CPT/HCPCS: 36415; 73564; 80053; 80061; 82306; 84443; 84550; 85025; 85651; 86038; 86431; 86803; 87389; G0103

== ENCOUNTER 2025-06-29 16:32 | Emergency (ER) | payer OTHER, SELFPAY ==
[2025-06-29 16:51] VITALS: BP 131/82; PULSE 89; RESP 18; TEMP 36.8; O2SAT 98; BMI 29.5
[2025-06-29 17:20] LABS: Hematocrit 41.7 % (42.0-52.0); Hemoglobin 14.4 g/dL (14.1-18.0); Immature Granulocytes % 0.3 %; Mean Corpuscular HGB Conc 34.5 g/dL (31.8-35.4); Mean Corpuscular Hemoglobin 31.6 pg (27.0-31.2); Mean Corpuscular Volume 91.6 fl (80-94); Nucleated Red Blood Cells % 0 %; Platelet Count 218 K/mm3 (142-424); Red Blood Count 4.55 M/mm3 (4.60-6.20); Red Cell Distribution Width-SD 42.4 fL; White Blood Count 11.7 K/mm3 (4.8-10.8)
--- NOTE | 2025-06-29 17:23 | CT_ITS ---
PROCEDURE INFORMATION: Exam: CT Head Without Contrast Exam date and time: 06/29/2025 6:04 PM Age: 55 years old Clinical indication: Other: Headache, posterior, positionally worse TECHNIQUE: Imaging protocol: Computed tomography of the head without contrast. Radiation optimization: All CT scans at this facility use at least one of these dose optimization techniques: automated exposure control; mA and/or kV adjustment per patient size (includes targeted exams where dose is matched to clinical indication); or iterative reconstruction. COMPARISON: MR - BRAINWO MR head/brain wo con 09/28/2018 8:08 AM FINDINGS: Brain: Normal. No hemorrhage. Unremarkable white matter. No mass effect. Cerebral ventricles: No ventriculomegaly. Paranasal sinuses: Left maxillary sinus opacification. Minimal left ethmoid sinusitis. Mastoid air cells: Visualized mastoid air cells are well aerated. Bones: Unremarkable. No acute fracture. Soft tissues: Unremarkable. IMPRESSION: 1. No acute intracranial abnormality identified. 2. Left maxillary and ethmoid sinusitis.
--- NOTE | 2025-06-29 17:26 | ED_ITS ---
Discharge Plan Disposition Patient Disposition: Home, Self-Care Condition: Good Prescriptions Prescriptions: No Action hydrocortisone acetate [Anusol-HC] 25 mg suppository 25 mg HI BID PRN (Reason: hemorrhoids) Qty: 24 0RF hydrocortisone 2.5 % cream with perineal applicator 1 applic HI QD-BID PRN (Reason: hemorrhoids) Qty: 30 1RF meloxicam 15 mg tablet 15 mg PO DAILY Qty: 30 2RF Referrals Follow up/Referrals: Marbella Argueta APRN [Primary Care Provider, Medical] - See instructions Activity Restrictions/Add. Instructions Additional Instructions/Restrictions: If you have any new or worsening symptoms please return Clinical Impressions Clinical Impression: Acute headache Stand Alone Forms Stand Alone Forms: Work/School Release Print Language Print Language: Israeli Discharge ED Provider: Tyson Curtis Adult HPI General Chief complaint: Headache Stated complaint: Severe Migrane; Nausea; Emesis Time Seen by Provider: 06/29/25 17:15 Mode of Arrival: Ambulatory Source of Information: Patient Description of Symptoms (Recalled from ER Triage Doc. by RN): Pt presents for evaluation for a headache that started at 1530. Pt states it is to the posterior head and rates it as a 8/10. PT has had N/V. Pt is sensitive to light. History of Present Illness HPI narrative: This is a 55-year-old male patient, with past medical history of tobacco abuse, who is presenting to the emergency department today for evaluation of a headache. Patient states that he has a history of headaches and has taken Ubrelvy in the past with good response. He states that he is not actually prescribed this medication and actually takes this from his family members who are prescribed his medication. He did not have access to this today. He does state however that this pain began sharply around 3:30 PM and reached maximal intensity by around 4 PM. He states that his headache is worse when he coughs but he has not noticed any positional component. He has not had any blurred vision or diplopia. No numbness or tingling or weakness in his extremities. No neck stiffness. No fevers or chills. No recent infectious symptoms. He states that his headaches are usually located all over his head but today they have been located in the posterior aspect of his head. Related Data Previous Rx's ?Medication ?Instructions ?Recorded hydrocortisone 2.5 % topical cream 1 applic HI QD-BID PRN hemorrhoids 06/04/25 with perineal applicator #30 grams hydrocortisone acetate 25 mg 25 mg HI BID PRN hemorrho ids #24 ea 06/04/25 rectal suppository (Anusol-HC) meloxicam 15 mg tablet 15 mg PO DAILY #30 tabs 05/22 11/14 Allergies Allergy/AdvReac Type Severity Reaction Status Date / Time levofloxacin (From LEVAQUIN) Allergy Unknown Unknown Verified 06/11/25 10:03 allergy reaction [facility] Disclaimer: The information contained in this section may have been updated after the patient was seen, as this information can be updated by other users. Medical History Obesity Post-op pain Abdominal pain Left upper arm injury Depression Brain injury Gallbladder polyp Strep throat Dental abscess Sinusitis Bronchitis Abnormal chest x-ray Surgical History History of laparoscopic cholecystectomy History of hernia repair History of surgery on upper extremity Family History Other Family history of myocardial infarction Social History Smoking Status: Current every day smoker alcohol intake: never substance use type: former substance user current occupational status: disabled Travel in the last 8 weeks?: None household members: family Have you lived/traveled outside US in past 30 days?: No Contact w/someone who lives/traveled outside US past 30 days?: No Exposure to someone with infectious disease in past 14 days?: No Do you have a fever (greater than 100.4 F or 38 C)?: No Have you tested positive for COVID-19?: No Exposed to someone with COVID-19 in past 14 days?: No Do you have a sore throat?: No Do you have a cough?: No Do you have any weakness?: No Do you have any diarrhea?: No Are you experiencing any unusual bleeding?: No Do you have any muscle aches/pain?: No Do you have any abdominal pain?: No Are you experiencing loss of taste or smell?: No Other Medical History Have you received the Pneumonia Vaccine: No ROS Obtained: Yes Systems reviewed as appropriate & no additional complaints except as documented Physical Exam General General appearance: other (See MDM) Respiratory Respiratory exam: Present other (See MDM) Cardiovascular Cardiovascular exam: Present other (See MDM) Neurological Exam Neurological exam: Present other (See MDM) Medical Decision Making Medical Records Medical records reviewed: Yes I reviewed the patient's medical records. Screening: Per USPSTF and CDC recommendations, given the prevalence of disease in our region, it is our hospital?s policy to screen for HIV and viral Hepatitis for all patients aged 18 and over and those with ongoing risk factors. Darrel Inquiry Pt receiving controlled substance: No Darrel was queried for this patient: No Vital Signs: 06/29/25 16:51 06/29/25 20:29 Temperature 98.2 F 98.7 F Temperature Source Oral Oral Pulse Rate 69 Pulse Rate [Right] 89 Respiratory Rate 18 15 Blood Pressure 150/88 H Blood Pressure [Right Arm] 131/82 Blood Pressure Mean [Right Arm] 98 Blood Pressure Source Automatic Cuff Blood Pressure Source [Right Arm] Automatic Cuff Blood Pressure Position Sitting Blood Pressure Position [Right Arm] Sitting 02 Sat by Pulse Oximetry 98 Oxygen Delivery Method Room Air Room Air Lab Data Lab Results 06/29/25 17:10: WBC 11.7 H, RBC 4.55 L, Hgb 14.4, Hct 41.7 L, MCV 91.6, MCH 31.6 H, MCHC 34.5, RDW 12.5, Plt Count 218, MPV 10.4, Neut % (Auto) 63.8, Lymph % (Auto) 24.3, [place] % (Auto) 10.4 H, Eos % (Auto) 0.9, Baso % (Auto) 0.3, Neut # (Auto) 7.5, Lymph # (Auto) 2.8, [place] # (Auto) 1.2 H, Eos # (Auto) 0.1, Baso # (Auto) 0.0, PT 11.7, INR 1.06, Sodium 138, Potassium 3.9, Chloride 104, Carbon Dioxide 23, Anion Gap 14.9, BUN 14, Creatinine 0.70, Estimated Creat Clear 151, Estimated GFR 117, Est GFR ( Amer) 141, Glucose 101 H, Calcium 9.1, Total Bilirubin 0.9, AST 38, ALT 32, Alkaline Phosphatase 124, Total Protein 7.4, Albumin 4.2, Globulin 3.2, Albumin/Globulin Ratio 1.3 10/10/25 17:10 06/29/25 17:10 Orders (Tests/Meds): ED MEDICATIONS Discontinued Medications Generic Name Dose Route Start Last Admin Trade Name Tera PRN Reason Stop Dose Admin Acetaminophen 1,000 mg 06/29/25 17:30 06/29/25 17:52 Acetaminophen 500mg Tab PO 06/29/25 17:31 1,000 mg ONCE ONE Administration Dexamethasone 10 mg 06/29/25 17:30 06/29/25 17:52 Dexamethasone 4mg Tablet PO 06/29/25 17:31 10 mg ONCE ONE Administration Diphenhydramine HCl 25 mg 06/29/25 17:30 06/29/25 17:52 Diphenhydramine 50mg/Ml Vial IV 06/29/25 17:31 25 mg ONCE ONE Administration Magnesium Sulfate 2 gm in 50 mls @ 50 mls/hr 06/29/25 17:30 06/29/25 18:50 Magnesium Sulfate 2gm/50ml Premix IV 06/29/25 18:29 Infused ONCE ONE Infusion Iopamidol 80 ml 06/29/25 19:57 06/29/25 19:58 Iopamidol-370 (76%);100ml Bottle IV 06/29/25 19:58 80 ml ONCE ONE Administration Ketorolac Tromethamine 30 mg 06/29/25 17:30 06/29/25 17:52 Ketorolac 30mg/Ml Vial IV 06/29/25 17:31 30 mg ONCE ONE Administration Prochlorperazine Edisylate 10 mg 06/29/25 17:30 06/29/25 17:52 Prochlorperazine 10mg/2ml Vial IV 06/29/25 17:31 10 mg ONCE ONE Administration Sodium Chloride 50 ml 06/29/25 19:57 06/29/25 19:58 0.9 % Sodium Chloride 50 Ml Vial IV 06/29/25 19:58 50 ml ONCE ONE Administration Sodium Chloride 10 ml 06/29/25 19:57 06/29/25 19:58 Sodium Chloride 0.9% 10ml Syr (Rad Only) IV 06/29/25 19:58 10 ml ONCE ONE Administration Sumatriptan Succinate 25 mg 06/29/25 19:29 06/29/25 19:49 Sumatriptan Succinate 25mg Tablet PO 06/29/25 19:30 25 mg ONCE ONE Administration ORDERS Category Date Time Status CT Venogram head Stat Cat Scan 06/29/25 19:[address] head/brain wo con Stat Cat Scan 06/29/25 17:23 Completed Complete Blood Count Auto Diff Stat Lab 06/29/25 17:10 Completed Comprehensive Metabolic Panel Stat Lab 06/29/25 17:10 Completed PT INR [Prothrombin Time INR] Stat Lab 06/29/25 17:10 Completed Medical Decision Narrative: In summary, this a 55-year-old male patient who is presenting to the emergency department today for evaluation of a headache that is located in the posterior aspect of his head. This is unusual from his typical migraines as his typical migraines are located all over his head. He has no associated vision changes. No weakness or unilateral/focal sensory deficits. He has not had any recent infectious symptoms and does not complain of neck stiffness. He does state that his headache is significantly worse with coughing. It reached its maximal intensity at around 30 minutes after onset. He did have an episode of nausea and vomiting associated with this. On initial evaluation of the patient they were resting comfortably in no acute distress and nontoxic in appearance. They are hemodynamically stable, saturating well room air, and are neurologically intact. On physical examination the patient has 5 out of 5 strength in his bilateral upper and lower extremities. No sensory deficits. Extraocular movements are intact. Visual whitney are full. He has no cerebellar signs abnormally on exam Differential diagnose includes migraine headache, subarachnoid hemorrhage, spontaneous intracranial hemorrhage, among others. Patient does not have any risk factors for thromboembolism aside from smoking so do not feel that dural venous thrombus is likely. Additionally, he is not currently having any infectious symptoms or nuchal rigidity/neck stiffness so I do not feel that meningitis is likely. Workup was initiated with hematologic labs as well as a CT scan of the head without contrast. We will treat the patient with a migraine cocktail including Toradol, Tylenol, magnesium, dexamethasone, Compazine, and Benadryl. Labs were personally interpreted by me and demonstrate a mild leukocytosis of 11.7, no actionable anemia, coags are normal. He has no significant electrolyte derangements or evidence of acute kidney injury. CT scan of the head was personally interpreted by me and demonstrates no obvious intracranial hemorrhages. Official radiology read is in agreement and states that there is no acute abnormality. On repeat assessment of the patient he states that he has had very minimal improvement in his symptoms with the migraine cocktail provided. He is also now stating that he is having a vertex headache. In light of these findings I decided to work the patient up further with a CT venogram of the head. CT venogram of the head was interpreted by radiology and they do not see any evidence of dural venous thrombosis. This is ultimately reassuring. I have treated the patient additionally with sumatriptan. Prior to seeing if this medication would improve the patient's symptoms, he stated that he had to leave the emergency department to deliver his son to work. He acknowledges understanding of return precautions. At this time all questions have been answered and all parties are agreeable with the decision to discharge home Critical Care Critical Care Time Critical Care Time: No
[2025-06-29 17:28] LABS: Alanine Aminotransferase 32 U/L (12-78); Albumin Level 4.2 g/dl (3.5-5.0); Albumin/Globulin Ratio 1.3 (1.1-1.8); Alkaline Phosphatase 124 U/L (38-126); Anion Gap 14.9 mEq/L (5-15); Aspartate Amino Transferase 38 U/L (17-59); Bilirubin,Total 0.9 mg/dl (0.2-1.3); Blood Urea Nitrogen 14 mg/dl (9-20); Calcium 9.1 mg/dl (8.4-10.2); Carbon Dioxide 23 mmol/L (22.0-30.0); Chloride 104 mmol/L (98-107); Creatinine Clearance Estimated 151 mL/min (50-200); Creatinine,Serum 0.70 mg/dl (0.66-1.25); Estimated Glomerular Filt Rate 117 ml/min (>60); GFR (African American) 141 ML/MIN (>60); Globulin 3.2 g/dL (1.3-3.2); Glucose 101 mg/dl (74-100); Potassium 3.9 mmoL/L (3.5-5.1); Sodium 138 mmol/L (136-145); Total Protein,Serum 7.4 g/dl (6.3-8.2)
[2025-06-29 17:36] LABS: INR 1.06 (0.9-1.1); Prothrombin Time 11.7 seconds (10.1-12.5)
[2025-06-29] MEDS: MAGNESIUM SULFATE IN WATER 2 GM/50 ML PIGGYBACK IV (17:50)
[2025-06-29] MEDS: ACETAMINOPHEN 500MG TAB 1000 MG PO (17:52)
[2025-06-29] MEDS: DEXAMETHASONE 4MG TABLET 10 MG PO (17:52)
[2025-06-29] MEDS: PROCHLORPERAZINE 10MG/2ML VIAL 10 MG IV (17:52)
[2025-06-29] MEDS: KETOROLAC 30MG/ML VIAL 30 MG IV (17:52)
--- NOTE | 2025-06-29 19:29 | CT_ITS ---
PROCEDURE INFORMATION: Exam: CTA Head With Contrast, Venography Exam date and time: 06/29/2025 7:57 PM Age: 55 years old Clinical indication: Other: Vertex headache TECHNIQUE: Imaging protocol: Computed tomography angiography of the head with contrast. Exam focused on the veins. 3D rendering (Not supervised by radiologist): MIP and/or 3D reconstructed images were created by the technologist. Radiation optimization: All CT scans at this facility use at least one of these dose optimization techniques: automated exposure control; mA and/or kV adjustment per patient size (includes targeted exams where dose is matched to clinical indication); or iterative reconstruction. Contrast material: ISO 370; Contrast volume: 80 ml; Contrast route: INTRAVENOUS (IV); COMPARISON: CT HEAD/BRAIN WO CON 06/29/2025 6:04 PM FINDINGS: Superior sagittal sinus: Patent. Straight sinus: Patent. Transverse sinuses: Patent. Sigmoid sinuses: Patent. Internal jugular veins: Limited visualized internal jugular veins are patent. Brain: No definite mass, mass effect, or midline shift. Cerebral ventricles: No ventriculomegaly. Soft tissues: Unremarkable. IMPRESSION: No venous thrombosis.
--- NOTE | 2025-06-29 19:53 | PC.NURSE ---
Pt to ct scanner
[2025-06-29] MEDS: 0.9 % SODIUM CHLORIDE 50 ML VIAL IV (19:58)
[2025-06-29] MEDS: SODIUM CHLORIDE 0.9% 10ML SYR (RAD ONLY) 10 ML IV (19:58)
[2025-06-29] MEDS: IOPAMIDOL-370 (76%);100ML BOTTLE 80 ML IV (19:58)
[2025-06-29 20:29] VITALS: BP 150/88; PULSE 69; RESP 15; TEMP 37.1; O2SAT 98
== END 2025-06-29 20:30 | disposition home or self-care (01) ==
PROVIDERS: Emergency Provider Student in an Organized Health Care Education/Training Program; PCP Nurse Practitioner Family
DX: R51.9 Headache, unspecified (principal); R11.2 Nausea with vomiting, unspecified; F17.210 Nicotine dependence, cigarettes, uncomplicated
CPT/HCPCS: 70450; 70496; 80053; 85025; 85610; 96365; 96375; 99284; J0780; J1200; J1885; J3475; J8540; Q9967